=== PATIENT | female | born 1995 | race Caucasian/White ===

== ENCOUNTER 2024-11-23 18:38 | Inpatient (IN) | payer BC, SELFPAY ==
[2024-11-23 18:59] VITALS: BP 136/100; PULSE 89
[2024-11-23 19:00] VITALS: PULSE 87; O2SAT 97
[2024-11-23 19:04] VITALS: BP 137/84; PULSE 82
[2024-11-23 20:11] VITALS: BMI 29.6
[2024-11-23] MEDS: DINOPROSTONE 10 MG VAGINAL INSERT VAGINAL (20:33)
[2024-11-23 22:51] VITALS: BP 127/77; PULSE 73; TEMP 36.6
[2024-11-24] VITALS (17 sets, daily range): BP systolic 115–141; BP diastolic 63–89; PULSE 75–234; RESP 14–16; TEMP 36.5–36.9; O2SAT 81–98
--- NOTE | 2024-11-24 08:01 | PM.OBHPLI ---
OB - H&P: HPI Labor/Induction History of Present Illness Time Seen by Provider: 08:01 Date Seen: 11/24/24 Chief Complaint: The patient is a 29 year old 1 para 0 at 38+3 weeks gestation by early US, who presents for IOL for IUGR. Chief complaint: IUGR : 1 Para: 0 Indications for induction: other (IUGR) Narrative: Anamika Chiang is a 29 year old female at 38+3 weeks who presents for IOL for IUGR. Level 2 US showed EFW 8th, AC 10th, otherwise normal. Declined NIPT. Most recent growth at 35 weeks showed EFW 4th and AC 2nd. monitoring has been reassuring with BPP on 11/21 09/12 with JOSE DAVID 4.1 and S/D ratio 2.7. [facility] recommends IOL 38-39w. Patient presented last evening. Found to be fingertip on SVE. Mohamud every 1-3 minutes, not feeling contractions. Proceeded with cervidil for cervical ripening. This AM, patient states she got some rest. Started to feel cramping overnight. Slightly more intense this AM. History of Present Dating criteria: based on LMP care: good care Ultrasounds: normal 1st trimester US Abnormal ultrasound findings: IUGR on Level 2 US. complications comment: Growth restriction Medical complications: none Labs Blood type: O (+) positive Rubella: immune RPR/VDLR: nonreactive GBS status: negative HBsAG: negative Narrative: GC/chlam neg Hep C neg GCT 163, passed 3 hour Review of Systems Status of ROS: Reports: 10 or more systems reviewed and unremarkable except as noted in History and below Meds Home Medications and Allergies Home Medications ?Medication ?Instructions ?Recorded ?Confirmed ?Type clotrimazole-betamethasone 1 1 applic topical BID PRN itching 11/23/24 11/23/24 History %-0.05 % topical cream vits,calcium 91-iron 28 1 pkg PO DAILY 11/23/24 11/23/24 History mg-folic 975 mcg-dha 200 mg oral pack ( + DHA) Allergies Allergy/AdvReac Type Severity Reaction Status Date / Time No Known Drug Allergies Allergy Verified 11/23/24 20:18 OB - H&P: Exam Physical Exam: Vital signs: Temp Pulse BP Pulse Ox 97.9 F 103 H 127/76 97 11/23/24 22:51 11/24/24 07:23 11/24/24 07:23 11/23/24 19:00 Narrative: General appearance: Well-appearing adult female. Alert, oriented and appropriate. Sitting up in hospital bed. HEENT: EOMI, no conjunctival injection or discharge. MMM. Neck: Supple. CV: RRR, no rubs, murmurs or extra heart sounds. Pulm: CTAB, no wheezes, rales or rhonchi. Abdomen: Gravid MSK: Moving all extremities. Ext: Warm and well-perfused. No LE edema. Skin: No rashes appreciated over exposed skin. Neuro: Grossly normal strength and sensation. No focal deficits. Psych: Normal affect. Detailed Labor and Delivery Exam: Dilation (cm): 1 Effacement (%): 60 Cervix position: posterior (L lateral) Consistency: medium Contraction frequency (min): 2 Fetus (Single): Station: -1 Amniotic Membrane Status: intact Heart Rate Baseline: 150 Monitor Accelerations: Present Monitor Decelerations: Variable (multiple decelerations 7-7:30, possibly some lates, but contractions were not capturing well. Now resolved with repositioning) Tennis Director Variability: Moderate (6-25) OB - Problem Based A/P Additional Plan (1) with 38 completed weeks gestation: Problem details: IOL for IUGR. Cervidil. GBS negative. Status: Acute Plan: - Cervidil due to be removed 8:40. Currently mohamud regularly, tentatively transition to pitocin - GBS negative - monitoring currently category I - IV to be placed this AM - Encouraged ambulation and labor warm up - Anticipate vaginal delivery (2) IUGR (intrauterine growth restriction): Problem details: EFW 4th percentile, AC 2nd percentile at 35 weeks. Declined NIPT. Status: Acute Plan: - Peds will be needed for delivery
[2024-11-24] MEDS: LACTATED RINGERS 1000 ML 1,000 ML 1200 ML IV (08:10)
[2024-11-24 08:39] LABS: Hematocrit* 36.4 % (33.0-51.0); Hemoglobin* 12.5 gm/dL (12.0-16.0); Immature Granulocytes Pct Auto 0.4 %; Mean Corpuscular HGB Conc 34 gm/dL (32-36); Mean Corpuscular Hemoglobin 31 pg (26-34); Mean Corpuscular Volume 90 fL (80-100); RDW Coefficient of Variation % 12.6 % (11.5-15.5); Red Blood Count* 4.06 m/uL (4.00-5.20); White Blood Count* 12.88 K/uL (4.50-11.00)
[2024-11-24 08:43] LABS: Immature Granulocytes Abs Auto 0.10 K/uL (0.00-0.30); Lymphocytes Absolute Auto 1.90 K/uL (0.90-2.90); Slide Review Reflex No
--- NOTE | 2024-11-24 12:35 | P.OBPN_ITS ---
Subjective Time Seen by Provider: 12:35 Date Seen: 11/24/24 Narrative: Cervidil removed 08:50. RN assisting with labor warm up. Continues to feel mild to moderate cramping. Not breathing through contractions. Cervical exam is 1.5 cm at the external os to the base of the cervix, but the in ternal os remains closed. Attemped cook catether, but could not get through the internal cervical os, and procedure was terminated. Objective Vital Signs: Last Vital Signs Temp 97.7 F 11/24/24 11:46 Pulse 85 11/24/24 11:46 BP 131/88 11/24/24 11:46 Pulse Ox 98 11/24/24 11:47 Pelvic Exam Dilation (cm): 0 Effacement (%): 60 Station: -1 Contractions Contraction Frequency: 2-3 Assessment Assessment: induction ongoing Station: -1 Status: Category l Heart Rate Baseline: 135 Account Resolution Specialist Variability: Moderate (6-25) Monitor Accelerations: Present Monitor Decelerations: Variable (multiple decelerations 7-7:30, possibly some lates, but contractions were not capturing well. Now resolved with repositioning) Plan Plan: - Hernandez score remains <8. Will proceed with additional cervical ripening with oral cytotec per protocol. Contractions have spaced slightly since removal of cervidil, patient is only feeling mild cramping. Monitor closely for tachysystole - monitoring category I - Epidural upon request - Anticipate vaginal delviery
--- NOTE | 2024-11-24 17:23 | P.OBPN_ITS ---
Subjective Time Seen by Provider: 17:23 Date Seen: 11/24/24 Narrative: Patient now s/p cervidil overnight, 2 doses of oral cytotec. Working through positions throughout the day with RN. Feeling about this same as this AM. Contractions are mild, crampy, every 1.5 - 5 mins. FHT have been category I with rare variables. Objective Vital Signs: Last Vital Signs Temp 97.7 F 11/24/24 11:46 Pulse 80 11/24/24 15:37 BP 138/76 11/24/24 15:37 Pulse Ox 81 L 11/24/24 15:38 Pelvic Exam Dilation (cm): 1 Effacement (%): 60 Station: -2 Comments: External os 2, internal os 1. Assessment Station: -1 Status: Category l Heart Rate Baseline: 145 Longterm Variability: Moderate (6-25) Monitor Accelerations: Present Monitor Decelerations: None (multiple decelerations 7-7:30, possibly some lates, but contractions were not capturing well. Now resolved with repositioning) Plan Plan: - AROM performed for clear fluid. Monitor x 2 hours per protocol - status reassuring - Epidural upon request - Anticipate vaginal delivery
[2024-11-25] VITALS (58 sets, daily range): BP systolic 92–144; BP diastolic 50–85; PULSE 73–169; RESP 14–20; TEMP 36.3–37.6; O2SAT 91–100
[2024-11-25] MEDS: OXYTOCIN 30 unit/500 ML in NS 30 UNIT/500 ML BAG IVPB (07:09)
--- NOTE | 2024-11-25 08:09 | P.OBPN_ITS ---
Subjective Time Seen by Provider: 08:09 Date Seen: 11/25/24 Narrative: Completed 6 doses of cytotec overnight (2 doses yesterday afternoon > AROM at 1716 > 4 additional doses overnight). Interval of 4 hours following last dose of cytotec prior to staring pitocin. Received morphine and vistaril and got a little rest, fatigued this AM. Contractions fairly infrequent overnight, but more regular and intense this AM. FHT have remained reassuring. Now breathing through contractions. Requesting epidural. Objective Vital Signs: Last Vital Signs Temp 97.6 F 11/25/24 07:15 Pulse 86 11/25/24 07:28 Resp 18 11/25/24 07:15 BP 115/67 11/25/24 07:28 Pulse Ox 98 11/24/24 18:27 Pelvic Exam Dilation (cm): 2 Effacement (%): 75 Station: -1 Comments: 399, RN exam Contractions Monitor mode: External Contraction Frequency: 3-3.5 mins Pitocin Rate (mU/min): 1 Assessment Assessment: early labor Station: -1 Amniotic Membrane Status: AROM Status: Category l Heart Rate Baseline: 130 Repulping Supervisor Variability: Moderate (6-25) Monitor Accelerations: Present Monitor Decelerations: None (multiple decelerations 7-7:30, possibly some lates, but contractions were not capturing well. Now resolved with repositioning) Tracing Comments: Contractions have been difficult to trace. Plan Plan: - Continue to titrate pitocin for labor induction - Consider internal monitoring pending labor progress - status reassuring - Patient has requested epidural, anesthesia present in the room - GBS negative - AROM x 15 hours, monitor closely for signs of infection - Anticipate vaginal delivery
[2024-11-25] MEDS: LACTATED RINGERS 1000 ML 1,000 ML 999 ML IV (08:15)
[2024-11-25] MEDS: LIDOCAINE 2% (PF) 5 ML VIAL EPIDURAL (08:32)
[2024-11-25] MEDS: ROPIVACAINE 0.2% 100 ml 100 ML 12 MG EPIDURAL (08:34)
--- NOTE | 2024-11-25 08:41 | PM.ANBPRC ---
PFSH PFSH Social History What is your current living situation?: I presently have a place to live Problems where you live: no known problems In the past 12 months, utilities in danger of being shut off: no In past 12 months, lack of transportation kept you from medical appts, meetings, work, or getting things needed for daily living: no In the past 12 mos, have been you worried that your food would run out before you had money to buy more?: never true In the past 12 mos, the food you bought just didn't last and you didn't have money to buy more?: never true Smoking Status: Never smoker How often does anyone, including family, friends and others, physically hurt you: never How often does anyone, including family, friends and others, insult or talk down to you: never How often does anyone, including family, friends and others, threaten you with harm: never How often does anyone, including family, friends and others, scream or curse at you: never Meds Home Medications and Allergies Home Medications ?Medication ?Instructions ?Recorded ?Confirmed ?Type clotrimazole-betamethasone 1 1 applic topical BID PRN itching 11/23/24 11/23/24 History %-0.05 % topical cream vits,calcium 91-iron 28 1 pkg PO DAILY 11/23/24 11/23/24 History mg-folic 975 mcg-dha 200 mg oral pack ( + DHA) Allergies Allergy/AdvReac Type Severity Reaction Status Date / Time No Known Drug Allergies Allergy Verified 11/23/24 20:18 Results Labs Labs: Laboratory Results - last 24 hr 11/23/24 08:30 WBC 12.88 H RBC 4.06 Hgb 12.5 Hct 36.4 MCV 90 MCH 31 MCHC 34 RDW Coeff of Stewart 12.6 Plt Count 173 Neut % (Auto) 75.7 H Lymph % (Auto) 14.[address] [place] % (Auto) 8.5 Eos % (Auto) 0.3 Baso % (Auto) 0.2 Neut # (Auto) 9.80 H Lymph # (Auto) 1.90 [place] # (Auto) 1.10 H Eos # (Auto) 0.00 Baso # (Auto) 0.00 Abs Immat Gran (auto) 0.10 Imm/Tot Granulo (auto) 0.4 Vital Signs Vital Signs: Last Vital Signs Temp 97.6 F 11/25/24 07:15 Pulse 88 11/25/24 08:35 Resp 18 11/25/24 07:15 BP 124/66 11/25/24 08:37 Pulse Ox 100 11/25/24 08:34 Weight: 80.739 kg Height: 165.1 cm Anesthesia Procedures Epidural Insertion Patient Location: OB Start Time: 08:00 Stop Time: 08:41 Start Date: 11/25/24 Stop Date: 11/25/24 Reason for Block: procedure for pain Patient Position: sitting Performed By: Chin Wise Preanesthetic Checklist: IV checked, risks and benefits discussed, surgical consent, monitors and equipment checked, pre-op evaluation, timeout performed and anesthesia consent Prep: chlorhexidine gluconate Monitoring: blood pressure monitoring, continuous pulse oximetry and heart rate Approach: midline Vertebral Space: lumbar (1-5) Needle Type: Tuohy needle Injection Technique: continuous catheter Needle gauge: 17 Needle Length (cm): 10 cm Needle Insertion Depth (cm): 7 Catheter Gauge: 19 Catheter Type: multi-orifice Catheter at skin depth (cm): 13 Test Dose Result: negative and lidocaine 1.5% with epinephrine 1 to 200,000
[2024-11-25] MEDS: PHENYLEPHRINE 100 MCG/ML SYRINGE IVP (08:43)
[2024-11-25] MEDS: miSOPROStoL 800 MCG/4 TABLET PR (11:32)
--- NOTE | 2024-11-25 11:51 | P.OBCN_ITS ---
OB - CN: HPI Date of Consult Time Seen by Provider: 11:45 Date Seen: 11/25/24 Consult date: 11/25/24 Requesting Physician: Shy Castillo MD Primary Care Provider: Shy Castillo MD Consult Narrative Narrative: The patient is a 29 year old at 38 weeks gestation that was admitted to the [facility] on 11/23/24 for IOL due to growth restrictions. I was asked to assess a vaginal laceration. Perineum inspected and a long deep 2nd degree laceration was noted. The external anal was noted to be completely intact with the tear just being around it. Rectal exam performed to confirm degree of tear. No deeper occult tear noted. I placed 2 figure of 8s at the vaginal introitus to close the broad space and to provide for a more substantial perineal body with 2-0 vicryl. The remainder of the tear was repaired as a typical 2nd degree laceration that will be repaired by Dr. Castillo. A rectal exam was performed at the end of repair and was without e/o suture through rectum or sphincter injury. Following the repair, strong bowel regimen instructions reviewed. Lap and needle count confirmed at the end of my portion of the repair. I disposed of the suture needle in the sharp bin. Care turned over to Dr. Castillo. History of Present complications comment: Growth restriction History History 1 Elective abortions Para 0 Spontaneous abortions Hx # Term Pregnancies Ectopic pregnancies Hx # Pregnancies Multiple births Number of Living Children 0 Labs Blood type: O (+) positive Rubella: immune RPR/VDLR: nonreactive GBS status: negative HBsAG: negative OB Labs: Lab Assessment Start: 11/23/24 18:47 Freq: ONCE Status: Complete Protocol: PC.OBGBS Activity Type Activity Date Activity User E-sign Co-sign Detail Recorded Client Recorded Date Recorded By Document 11/23/24 21:24 POT No Response 11/23/24 21:25 POT 11/23/24 21:24 Lab Assessment GBS Status negative Is Patient Allergic to Penicillin? No Are Labs Available Yes Maternal Blood Type O Maternal RH Factor Positive Evaluate Maternal Rubella Immune Status Immune Hepatitis B Surface Antigen Negative Maternal HIV Status Negative Maternal Syphillis (RPR) Status Negative PFSH PFSH Social History What is your current living situation?: I presently have a place to live Problems where you live: no known problems In the past 12 months, utilities in danger of being shut off: no In past 12 months, lack of transportation kept you from medical appts, meetings, work, or getting things needed for daily living: no In the past 12 mos, have been you worried that your food would run out before you had money to buy more?: never true In the past 12 mos, the food you bought just didn't last and you didn't have money to buy more?: never true Smoking Status: Never smoker How often does anyone, including family, friends and others, physically hurt you : never How often does anyone, including family, friends and others, insult or talk down to you: never How often does anyone, including family, friends and others, threaten you with harm: never How often does anyone, including family, friends and others, scream or curse at you: never Meds Home Medications and Allergies Home Medications ?Medication ?Instructions ?Recorded ?Confirmed ?Type clotrimazole-betamethasone 1 1 applic topical BID PRN itching 11/23/24 11/23/24 History %-0.05 % topical cream vits,calcium 91-iron 28 1 pkg PO DAILY 11/23/24 History mg-folic 975 mcg-dha 200 mg oral pack ( + DHA) Allergies Allergy/AdvReac Type Severity Reaction Status Date / Time No Known Drug Allergies Allergy Verified 11/23/24 20:18 OB - H&P: Exam Physical Exam: Vital signs: Temp Pulse Resp BP Pulse Ox 98.7 F 111 H 20 135/62 97 11/25/24 11:00 11/25/24 11:29 11/25/24 11:00 11/25/24 11:29 11/25/24 09:34 OB - CN: A/P Assessment and Plan (1) with 38 completed weeks gestation: Problem details: IOL for IUGR. Cervidil. GBS negative. Status: Acute (2) IUGR (intrauterine growth restriction): Problem details: EFW 4th percentile, AC 2nd percentile at 35 weeks. Declined NIPT. Status: Acute
--- NOTE | 2024-11-25 12:33 | W.PM.OBVAGDE ---
OB Procedure Vag Delivery Mother Details Mother Details: The patient is a 29 year-old, 1, Para 0, admitted on 11/23/24 at 38+1 Days gestation for IOL for IUGR. She was mohamud every 1-3 minutes on admission, asymptomatic. Cervix was fingertip, -2. Cervidil was placed for cervical ripening. Cervidil removed after 12 hours. Cervix largely unchanged. Cook catheter placement was unsuccessful. Transitioned to oral cytotec per protocol. Received 2 doses. MD cervical check was /, head well applied, and AROM performed at 1716 on 11/24 for labor augmentation. Patient received additional 4 doses of oral cytotec. Began to become more uncomfortable with more regular uterine contractions around 0200 on 11/25. Requested epidural, which was placed 0845. Prolonged deceleration [id number] with isaac to 90, resolved with position change. FHT otherwise remained category I during inductiona and in the first stage. Found to be 9.5 cm following epidural. Complete 1010. Began pushing 1013. Pushed with good effort. FHT category II in the second stage, brief decelerations with pushing and rapid correction. Vigorous male delivered over an intact perineum at 1124 in the OA position. A nuchal cord was reduced. was placed on the maternal chest. APGARs were 8 and 9. Complete, 3V placenta delivered spontaneously at 1128. Patient received IV pitocin and rectal cyctotec. QBL 908. Dr. Gore was called to assess perineal laceration. Her assessment was a deep second degree. She place several deep sutures. Remainder of the repair was completed by Dr. Castillo. Mom and infant are resting comfortably. : 1 Para: 0 Weeks Gestation: 38.3 Admission Date: 11/23/24 Additional Details Amniotic Membrane Status: AROM Amniotic Membrane Rupture Date: 11/24/24 Amniotic Membrane Rupture Time: 17:16 Amniotic Membrane Fluid Description: Clear Analgesia/Anesthesia Type: Epidural Waterbirth: No Pitcoin: Yes Intrapartal Events: Labor Augmentation and Labor Induction Induction Method: Cervidil, per misoprostol protocol, per pitocin protocol and AROM Delivery augmentation: pitocin Labor Onset: 02:00 Complete: 10:10 Pushin:13 Heart: heart tones during second stage were category II. Delivery Details Delivery Date: 11/25/24 Delivery Time: 11:24 Route of delivery: Gender: Male Infant Viability: Alive; Heart Rate Present Position at Delivery: OA Delivery Details: Delivered via spontaneous vaginal delivery. Infant was placed on maternal abdomen.? Cord was clamped and cut after a 30-60 second delay. Nose and mouth were bulb suctioned.? weight pending. 1 Minute Interval Total Score: 8 5 Minute Interval Total Score: 9 Additional Details Shoulder Dystocia: No Placenta Delivery Time: 11:28 Placental Delivery Description: Spontaneous Delivery repair: Vicryl Procedure Done: Global Blood Loss: 908 Laceration: Vaginal - 2nd Degree Episiotomy Description: None Blood Loss Measurement Type: QBL Bakri Used: No Sponge/Need Count Correct: Yes Cord Vessel Description: 3 Vessels Event Summary Status: Mother and were stable after delivery. Disposition: floor
[2024-11-25] MEDS: DOCUSATE SODIUM 100 MG CAPSULE PO (17:03)
[2024-11-25] MEDS: IBUPROFEN 600 MG TABLET PO (17:03)
[2024-11-25] MEDS: ACETAMINOPHEN 500 MG TABLET 1000 MG PO (19:45)
[2024-11-25] MEDS: LACTATED RINGERS 1000 ML 1,000 ML IV (20:11)
[2024-11-25 20:28] LABS: Hematocrit* 28.9 % (33.0-51.0); Hemoglobin* 10.1 gm/dL (12.0-16.0); Immature Granulocytes Pct Auto 0.5 %; Mean Corpuscular HGB Conc 35 gm/dL (32-36); Mean Corpuscular Hemoglobin 32 pg (26-34); Mean Corpuscular Volume 90 fL (80-100); RDW Coefficient of Variation % 12.8 % (11.5-15.5); Red Blood Count* 3.21 m/uL (4.00-5.20); White Blood Count* 17.43 K/uL (4.50-11.00)
[2024-11-25 20:34] LABS: Immature Granulocytes Abs Auto 0.10 K/uL (0.00-0.30); Lymphocytes Absolute Auto 2.20 K/uL (0.90-2.90); Slide Review Reflex No
[2024-11-25 21:02] LABS: Alanine Aminotransferase* 20 U/L (4-35); Aspartate Amino Transferase* 44 U/L (12-35); Creatinine* 0.8 mg/dL (0.5-1.5); Est. Creatinine Clearance* 91.68; Estimated Glomerular Filt Rate 101 ml/min
--- NOTE | 2024-11-25 22:05 | PM.OBPNVD1 ---
OB - PN:Subj Subjective Time Seen by Provider: 22:06 Date Seen: 11/25/24 Patient comments OB post-: perineal pain and flatus present [place] infant status: and doing well Narrative: Patient is experiencing feeling of need to have BM. Is having pain in perineum, has a feeling of discomfort but not pain in abdomen. RN calls for assessment due to abdominal distension, mild tachycardia. Patient has had 2 BM in the last 2 days. She feels this is regular for her. She feels she is voiding ok. OB - PN: Obj Exam Physical Exam: Vital signs: Temp Pulse Resp BP Pulse Ox O2 Del Method 97.8 F 94 18 111/79 97 Room Air 11/25/24 21:25 11/25/24 21:25 11/25/24 21:11/25/24 21:25 11/25/24 21:25 11/25/24 21:25 Constitutional: Constitutional: no acute distress Routine HEENT Exam: Head: Present normal inspection Routine Neck Exam: Neck: Present full ROM Routine Respiratory Exam: Respiratory: Present CTA bilaterally, crackles and rales Routine Cardiovascular Exam: Cardiovascular: Present RRR, S1 and S2; Absent murmur Routine Abdominal Exam: Abdominal: Present distended and tenderness (minimally tender diffusely, no rebound/guarding) Fundus: Present firm (at umbilicus) Detailed Abdominal Exam: Bowel sounds: hyperactive Routine Extremities Exam: Extremities: Present pedal edema (1+ bilaterally); Absent calf tenderness Routine Neurological Exam: Neurological: Present alert and oriented X3 Routine Psychiatric Exam: Psychiatric: Present normal affect OB - PN: Obj Data Labs Labs: Laboratory Results - last 24 hr 11/25/24 20:22 WBC 17.43 H RBC 3.21 L Hgb 10.1 L Hct 28.9 L MCV 90 MCH 32 MCHC 35 RDW Coeff of Stewart 12.8 Plt Count 164 Neut % (Auto) 77.1 H Lymph % (Auto) 12.5 L [place] % (Auto) 9.6 Eos % (Auto) 0.1 Baso % (Auto) 0.2 Neut # (Auto) 13.40 H Lymph # (Auto) 2.20 [place] # (Auto) 1.70 H Eos # (Auto) 0.00 Baso # (Auto) 0.00 Abs Immat Gran (auto) 0.10 Imm/Tot Granulo (auto) 0.5 Creatinine 0.8 Estimated Creat Clear 91.68 Estimated GFR 101 AST 44 H ALT 20 OB - PN: A/P Delivery Assessment and Plan (1) with 38 completed weeks gestation: Problem details: IOL for IUGR. Cervidil, cytotec, AROM then pitocin. GBS negative. Status: Acute (2) Urinary retention: Problem details: RN noted abdominal distention at shift change evening 11/25. Had mild tachycardia. Given pain medications, fluid bolus. Bladder scan for >650 ccs. Discussed with patient options for coon, elects to have coon placed overnight. Coon was placed, 1300 immediately drained from bladder. Abdomen is no longer distended, fundus is 1 below umbilicus, firm, nontender. Status: Acute (3) IUGR (intrauterine growth restriction): Problem details: EFW 4th percentile, AC 2nd percentile at 35 weeks. Declined NIPT. SGA by 5 grams. Status: Acute (4) Abdominal distention: Problem details: improved after placement of coon catheter. Will monitor. Status: Acute (5) (normal spontaneous vaginal delivery): Status: Acute (6) Second degree laceration of perineum, delivered, current hospitalization: Problem details: Repaired with Dr. Gore And Dr. Castillo. Status: Acute Assessment and Plan: - continue bowel regimen (7) hemorrhage: Problem details: 908 QBL, received cytotec and pitocin. Hemoglobin tonight 10.1. Status: Acute Plan - coon placed, will keep in place x 12 hours and do bladder trial tomorrow - ins/outs monitored - monitor for distension, bleeding, new pain. - Recheck labs in am. (CBC, AST, ALT, Creat). Plan day: 0 Plan: routine care
[2024-11-26 01:05] VITALS: BP 135/83; PULSE 101; RESP 16; TEMP 36.5; O2SAT 97
[2024-11-26] MEDS: IBUPROFEN 600 MG TABLET PO ×3 (01:14→18:05)
[2024-11-26 03:32] VITALS: BP 110/68; PULSE 78; RESP 20; TEMP 37.1; O2SAT 98
[2024-11-26 05:28] LABS: Hematocrit* 25.8 % (33.0-51.0); Hemoglobin* 8.7 gm/dL (12.0-16.0); Immature Granulocytes Pct Auto 0.7 %; Lymphocytes Absolute Auto 3.60 K/uL (0.90-2.90); Mean Corpuscular HGB Conc 34 gm/dL (32-36); Mean Corpuscular Hemoglobin 31 pg (26-34); Mean Corpuscular Volume 92 fL (80-100); RDW Coefficient of Variation % 13.0 % (11.5-15.5); Red Blood Count* 2.82 m/uL (4.00-5.20); White Blood Count* 13.59 K/uL (4.50-11.00)
[2024-11-26 05:36] LABS: Immature Granulocytes Abs Auto 0.10 K/uL (0.00-0.30); Slide Review Reflex No
[2024-11-26 05:42] LABS: Chloride* 104 mmol/L (96-114); Sodium* 132 mmol/L (135-149)
[2024-11-26 05:43] LABS: Potassium* 4.3 mmol/L (3.6-5.1)
[2024-11-26 05:45] LABS: Alanine Aminotransferase* 15 U/L (4-35); Anion Gap 2 mEq/L (7-15); Aspartate Amino Transferase* 36 U/L (12-35); Blood Urea Nitrogen* 10 mg/dL (5-24); Carbon Dioxide* 26 mmol/L (20-32); Creatinine* 0.7 mg/dL (0.5-1.5); Est. Creatinine Clearance* 104.78; Estimated Glomerular Filt Rate 119 ml/min
[2024-11-26 05:46] LABS: Calcium* 8.0 mg/dL (8.4-10.6); Glucose* 94 mg/dL (60-115)
--- NOTE | 2024-11-26 07:08 | PM.OBPNVD1 ---
OB - PN:Subj Subjective Date Seen: 11/26/24 Narrative: Patient seen today on PP day 1. Endorses significant perineal pain and discomfort. Minimal rest overnight. Had urinary retention overnight. Coon in place for 12 hours, plan for removal and void trial today. PPH. Hb 8.7 today. Pain under control with ibuprofen. Lochia decreasing. Ambulating. Tolerating diet. is not going well, suplementing. . OB - PN: Obj Exam Physical Exam: Vital signs: Temp Pulse Resp BP Pulse Ox O2 Del Method 98.7 F 78 20 110/68 98 Room Air 11/26/24 03:32 11/26/24 03:32 11/26/24 03:32 11/26/24 03:32 11/26/24 03:32 11/26/24 03:32 Narrative: Gen: NAD CV: RRR, normal S1,S2, no murmurs Resp: normal rate and effort, clear to auscultation Abd: Soft, uterus firm and nontender at 1in belowumbilicus Ext: Warm, dry, 2+ pedal pulses, no edema b/l. Calves non-tender to palpation. Mood: Appropriate OB - PN: Obj Data Labs Labs: Laboratory Results - last 24 hr 11/23/24 11/25/24 11/26/24 08:30 20:22 05:20 WBC 17.43 H 13.59 H RBC 3.21 L 2.82 L Hgb 10.1 L 8.7 L Hct 28.9 L 25.8 L MCV 90 92 MCH 32 31 MCHC 35 34 RDW Coeff of Stewart 12.8 13.0 Plt Count 164 131 L Neut % (Auto) 77.1 H 62.9 Lymph % (Auto) 12.5 L 26.5 [place] % (Auto) 9.6 9.4 Eos % (Auto) 0.1 0.4 Baso % (Auto) 0.2 0.1 Neut # (Auto) 13.40 H 8.50 H Lymph # (Auto) 2.20 3.60 H [place] # (Auto) 1.70 H 1.30 H Eos # (Auto) 0.00 0.10 Baso # (Auto) 0.00 0.00 Abs Immat Gran (auto) 0.10 0.10 Imm/Tot Granulo (auto) 0.5 0.7 Sodium 132 L Potassium 4.3 Chloride 104 Carbon Dioxide 26 Anion Gap 2 L BUN 10 Creatinine 0.8 0.7 Estimated Creat Clear 91.68 104.78 Estimated GFR 101 119 Glucose 94 Calcium 8.0 L AST 44 H 36 H ALT 20 15 RPR Screen Non Reactive OB - PN: A/P Delivery Assessment and Plan (1) with 38 completed weeks gestation: Problem details: IOL for IUGR. Cervidil, cytotec, AROM then pitocin. GBS negative. Status: Acute (2) Urinary retention: Problem details: RN noted abdominal distention at shift change evening 11/25. Had mild tachycardia. Given pain medications, fluid bolus. Bladder scan for >650 ccs. Discussed with patient options for coon, elects to have coon placed overnight. Coon was placed, 1300mL immediately drained from bladder. Abdomen is no longer distended, fundus is 1 below umbilicus, firm, nontender. Status: Acute (3) IUGR (intrauterine growth restriction): Problem details: EFW 4th percentile, AC 2nd percentile at 35 weeks. Declined NIPT. SGA by 5 grams. Status: Acute (4) Abdominal distention: Problem details: improved after placement of coon catheter. Will monitor. Status: Acute (5) (normal spontaneous vaginal delivery): Status: Acute (6) Second degree laceration of perineum, delivered, current hospitalization: Problem details: Repaired with Dr. Gore And Dr. Castillo. Significant pain. Schedule tylenol/ibuprofen, given dose of oxycodone. Status: Acute (7) hemorrhage: Problem details: 908 QBL, received cytotec and pitocin. Hemoglobin 8.7 on 11/26, started oral iron. Status: Acute (8) Anxiety: Problem details: Started on sertraline 25mg daily in consultation with Anna Status: Acute
[2024-11-26] MEDS: ACETAMINOPHEN 500 MG TABLET 1000 MG PO ×3 (08:52→21:04)
[2024-11-26 09:00] VITALS: BP 102/68; PULSE 83; RESP 16; TEMP 36.4; O2SAT 97
[2024-11-26] MEDS: DOCUSATE SODIUM 100 MG CAPSULE PO (10:10)
[2024-11-26] MEDS: BENZOCAINE/MENTHOL SPRAY 85 GM AEROSOL 1 APPLIC TOPICAL (10:24)
--- NOTE | 2024-11-26 10:47 | PM.EN ---
Chart Event Note Time Seen by Provider: :30 Date Seen: 11/26/24 Chart Event Note: S: I was asked to evaluate the patient regarding perineal pain following vaginal delivery. PPD #1 following with deep second degree perineal laceration. Urinary retention starting prior to delivery - large volume of urine with catheter following epidural - required catheter replacement overnight. She has been receiving tylenol and ibuprofen, but continues to c/o perineal pain. Expresses worry about multiple things including urinating without a catheter, fear of having a bowel movement, fatigue, wanting to shower. Tearful. Only minimal sleep since delivery. present and supportive. O: Gen: Well-appearing, sitting up in bed, tearful CV/PULM: appears well perfused, breathing comfortably on room air ABD: Soft, non-tender. Fundus palpated 2 cm below the umbilicus : Moderate edema of the vulva, labia minora, perineum. Repair appears intact. No evidence of hematoma. A/P: - Continue tylenol and ibuprofen, alternating, each schedule Q6H. Dose of oxycodone 5 mg now. Consider going forward PRN - Continue daily miralax, docusate BID PRN for bowel regimen - Extend catheter for 18H, then remove and trial of voiding - Discussed initiation of SSRI, sertraline. Reviewed appropriate use, expectations, adverse effects. Patient is agreeable. 25 mg daily x 7 days, then increase to 50 mg daily
[2024-11-26] MEDS: FERROUS SULFATE 325 MG TABLET PO (12:31)
[2024-11-26 12:39] VITALS: BP 127/84; PULSE 86; RESP 18; TEMP 36.4; O2SAT 98
[2024-11-26 15:25] VITALS: BP 105/70; PULSE 75; RESP 18; TEMP 36.4; O2SAT 98
[2024-11-26 20:00] VITALS: BP 135/88; PULSE 75; RESP 16; TEMP 36.7; O2SAT 98
[2024-11-27] MEDS: IBUPROFEN 600 MG TABLET PO ×4 (00:35→19:55)
[2024-11-27] MEDS: ACETAMINOPHEN 500 MG TABLET 1000 MG PO ×4 (03:07→22:07)
[2024-11-27 03:55] VITALS: BP 120/78; PULSE 97; RESP 16; TEMP 36.7; O2SAT 97
[2024-11-27 08:25] VITALS: BP 123/78; PULSE 87; RESP 16; TEMP 36.6; O2SAT 97
[2024-11-27] MEDS: SERTRALINE 50 MG TABLET 25 MG PO (09:06)
[2024-11-27] MEDS: DOCUSATE SODIUM 100 MG CAPSULE PO (09:06)
[2024-11-27 15:30] VITALS: BP 123/79; PULSE 88; RESP 16; TEMP 36.8; O2SAT 97
[2024-11-27 21:31] VITALS: BP 128/89; PULSE 97; RESP 16; TEMP 36.6; O2SAT 97
--- NOTE | 2024-11-27 22:43 | PM.OBDSVD1 ---
DS: Providers Provider Time Seen by Provider: 08:00 Date Seen: 11/27/24 Date of admission: 11/23/24 18:38 Primary care physician: Shy Castillo MD Admitting Clinician: Shy Castillo MD Attending Physician on discharge: Shy Castillo MD Date of Discharge: 11/27/24 DS: Diagnosis Discharge Diagnosis (1) with 38 completed weeks gestation: Status: Acute Problem details: IOL for IUGR. Cervidil, cytotec, AROM then pitocin. GBS negative. (2) IUGR (intrauterine growth restriction): Status: Acute Problem details: EFW 4th percentile, AC 2nd percentile at 35 weeks. Declined NIPT. SGA by 5 grams. (3) (normal spontaneous vaginal delivery): Status: Acute (4) Second degree laceration of perineum, delivered, current hospitalization: Status: Acute Problem details: Repaired with Dr. Gore And Dr. Castillo. Significant pain. Schedule tylenol/ibuprofen, given dose of oxycodone. (5) hemorrhage: Status: Acute Problem details: 908 QBL, received cytotec and pitocin. Hemoglobin 8.7 on 11/26, started oral iron. (6) Urinary retention: Status: Acute Problem details: RN noted abdominal distention at shift change evening 11/25. Had mild tachycardia. Given pain medications, fluid bolus. Bladder scan for >650 ccs. Discussed with patient options for iniguez, elects to have iniguez placed overnight. Iniguez was placed, 1300mL immediately drained from bladder. Abdomen is no longer distended, fundus is 1 below umbilicus, firm, nontender. Normal urination following iniguez removal prior to discharge. (7) Anxiety: Status: Acute Problem details: Started on sertraline 25mg daily in consultation with Anna Exam Narrative: Exam Narrative: General appearance: Well-appearing adult female. Alert, oriented and appropriate. Sitting up in hospital bed. HEENT: EOMI, no conjunctival injection or discharge. MMM. Neck: Supple. CV: RRR, no rubs, murmurs or extra heart sounds. Pulm: CTAB, no wheezes, rales or rhonchi. Abdomen: Soft, non-tender. Fundus palpated 2 cm below the umbilicus. MSK: Moving all extremities. Ext: Warm and well-perfused. Trace LE edema. Skin: No rashes appreciated over exposed skin. Neuro: Grossly normal strength and sensation. No focal deficits. Psych: Normal affect. Const: Vital Signs, click to edit/add: Vital Signs - 24 hr 11/27/24 03:55 11/27/24 08:25 11/27/24 15:30 Temperature 98.0 F 98 F 98.2 F Pulse Rate [Blood Pressure Cuff] 97 87 88 Respiratory Rate 16 16 16 Blood Pressure [Ri ght Arm] 120/78 123/78 123/79 Pulse Oximetry 97 97 97 Oxygen Delivery Me thod Room Air Room Air Room Air 11/27/24 21:31 Temperature 97.9 F Pulse Rate [Blood Pressure Cuff] 97 Respiratory Rate 16 Blood Pressure [Ri ght Arm] 128/89 Pulse Oximetry 97 Oxygen Delivery Me thod Room Air OB - DS: Summary Hospital Course Hospital Course: The patient is a 29 year old G 1 P 0 at 38+2 weeks gestation that was admitted to the Center on 11/23/24 for IOL for IUGR. Cervical ripening with cervidil followed by oral cytotec and AROM. Received epidural. She had an uncomplicated vaginal delivery. Deep second degree perineal laceration. She delivered a viable male . She is breast feeding. Urinary retention after delivery required iniguez replacement x 18 hours. Subsequently normal urination. Required one dose of oxycodone for perineal pain, thereafter did well with scheduled tylenol and ibuprofen. Started on sertraline for anxiety. Peripartum Data Infant delivery method: Vaginal Laceration description: Perineal - 2nd Degree Episiotomy description: None complications: other (urinary retention) Gender: Male Infant Discharge Plan: Home Status at Discharge Functional status at discharge: independent ambulation Overall status at discharge: patient is progressing back to baseline Time Spent with Patient Time attestation: Total time spent providing and/or coordinating discharge services: Time spent: Greater than 30 minutes Discharge Plan Discharge Disposition: Home, Self-Care Date of Admission: 11/23/24 18:38 Attending Provider on Discharge: Shy Castillo Primary Care Provider: Shy Castillo I Condition: Improved Anticipated Discharge Date/Time: 11/27/24 19:25 Discharge Medications: New acetaminophen 500 mg Tablet 1,000 mg PO Q6H Qty: 30 0RF docusate sodium 100 mg Capsule 100 mg PO BID PRN (Reason: Constipation) Qty: 30 0RF ferrous sulfate 325 mg (65 mg iron) Tablet 325 mg PO Q48H Qty: 30 0RF polyethylene glycol 3350 17 gram Powder In Packet 17 g PO DAILY Qty: 30 0RF ibuprofen 600 mg Tablet 600 mg PO Q6H Qty: 3 0RF sertraline 50 mg Tablet 25 mg PO DAILY Qty: 30 1RF Rx Instructions: Take 0.5 tablet daily for 6 days, then increase to 1 tablet daily Continued clotrimazole-betamethasone 1-0.05 % cream 1 applic topical BID PRN (Reason: itching) + DHA 28 mg iron- 975 mcg-200 mg combo pack 1 pkg PO DAILY Discharge Orders: Discharge Order (Routine); Ordered 11/27/24 Ordered By: Shy Castillo Consulting provider completed their portion of the discharge: Yes Patient Education: Vaginal Delivery (DC) Activity Level: Activity as Tolerated Discharge Diet: Regular Follow Up Appointments: Shy Castillo MD [Primary Care Provider, Obstetrics] Forms: [facility] Info Instructions Discharge Comments: Follow-up with Dr. Castillo at the [facility] for 6 week post- visit
== END 2024-11-27 23:15 | disposition home or self-care (01) | DRG 560 ==
PROVIDERS: Family Medicine; Admitting Provider Family Medicine; PCP Family Medicine; Visit Provider Family Medicine
DX: O36.5930 Maternal care for other known or suspected poor fetal growth, third trimester, not applicable or unspecified (principal); Z3A.38 38 weeks gestation of pregnancy; O70.1 Second degree perineal laceration during delivery; R33.9 Retention of urine, unspecified; R14.0 Abdominal distension (gaseous); O72.1 Other immediate postpartum hemorrhage; O99.345 Other mental disorders complicating the puerperium; F41.9 Anxiety disorder, unspecified; Z37.0 Single live birth
CPT/HCPCS: 01967; 36415; 51798; 59200; 80048; 82565; 84450; 84460; 85018; 85025; 86592; 88307; A9270; J2270; J2795; J7120

== ENCOUNTER 2024-12-05 16:05 | Outpatient (CLI) | payer BC, SELFPAY ==
--- NOTE | 2024-12-05 16:36 | W.PM.LAC.MC ---
Consult Note - Mom Date of Visit Date of visit: 12/05/24 Reason for consultation: Assistance Needed and Breast/Nipple Issue (some nipple pain with latching, babe sleepy at times) Visit Code: Visit Patient's Information Phone number: [phone] : 1 Para: 1 Allergies No Known Drug Allergies Allergy (Verified 11/23/24 20:18) Mother's Medical History: Medical History (Updated 12/05/24 @ 00:01 by Tarah Kerr) hemorrhage ?O72.1 - Other immediate hemorrhage (ICD-10) (normal spontaneous vaginal delivery) ?O80 - Encounter for full-term uncomplicated delivery (ICD-10) IUGR (intrauterine growth restriction) Work Plans: return to work Apr 2025 Delivery Information Delivery type: Vaginal Gestational Age: 38+3 Gestational Weight For Age: SGA Weight: 2.595 kg Discharge Weight: 2.464 kg Percentage weight loss: 5.1 Baby's Information Baby's Age at Visit: 10 days Baby's Provider or Clinic: [facility] Jaundice: No Past Experience Past Experience: No Current Frequency of Day Feedings: 2.5-3.5 hrs day and night Both Breasts: Yes Suck: strong Latch: sometimes painful and shallow Length of Time: 10-15 min ea side Goals: 1 year Pumping Pumping: Yes Quantity Pumped: 2 oz once a day after pee feeding Supplementing EBM Supplement: No Formula Supplement: No Baby Elimination Number of Wet Diapers a Day: ea feeding Number of BM a Day: 6+/day-yellow, seedy Breast/Nipple Condition Breast Information: Breasts are symmetrical with rounded lower quadrants, intramammary distance is less than 1.5 inches. No erythema. Nipples are supple, everted prior to feeding. Breast Shape: Round Engorgement: No Maternal Nipple Condition - Left: Common Nipple Maternal Nipple Condition - Right: Common Nipple Sore Nipples: Yes (slight, R>L) Interventions for Sore Nipples: Lansinoh/Nipple Cream Baby Assessment Skin: Normal Tongue/frenulum: Normal/elastic Palate: Average Lips: Relaxed and Symmetrical Jaw Alignment: Symmetrical Mucosa: Paul, moist Onsite Observation Pre-Feed weight: 2.728 kg Post-Feed weight: 2.778 kg Milk Transferred (mL): 50 Position: Cross cradle Attachment/latch-on achieved: Easily and With difficulty (on the right side more than the left; repositioned and then he latched well) Suck pattern: Suck burst and normal rest Swallow: Audible, consistent Behavior following feed: Alert, content Pre-Nursing Left Nipple: Within Normal Limits Pre-Nursing Right Nipple: Within Normal Limits Post-Nursing Left Nipple: Creased/Beveled (slight) Post-Nursing Right Nipple: Within Normal Limits (no creasing with position change) Assessments/Interventions Assessments/Interventions: Jg latched to mom's left breast, latched after 3 attempts for a deep latch and stayed nursing for 15 minutes. Transferred 32 ml of milk Jg then latched to mom's right breast, latched a bit more challenging for a deep latch but once he was on mom stated it was more comfortable than usual and nursed for another 6.5 minutes and pulled himself off Transferred 18 ml of milk. Total milk transferred 50 ml Jg needed gentle support to stay latched. Jg with excellent weight gain; beyond weight at 10 days of age and transferring milk well Education provided: Early feeding cues to maximize timing of latching, Asymmetric latch technique for wide/deep latch to increase milk, Transfer for baby and increase comfort for mom, Supply/demand nature of milk supply, Need for frequent stimulation/milk removal (discussed night feedings as it pertains to milk supply vs bottle feeding EBM through the night), Alternative feeding methods (SNS, cup, finger feeding, bottling) (discussed bottle options supportive of ), Pumping for milk management and Milk collection, storage Follow-Up Suggested follow up: Appointment as needed Time Spent Time spent with patient (min): 75 Meds Home Medications and Allergies Home Medications ?Medication ?Instructions ?Recorded ?Confirmed ?Type clotrimazole-betamethasone 1 1 applic topical BID PRN itching 11/23/24 11/23/24 History %-0.05 % topical cream vits,calcium 91-iron 28 1 pkg PO DAILY 11/23/24 11/23/24 History mg-folic 975 mcg-dha 200 mg oral pack ( + DHA) acetaminophen 500 mg tablet 1,000 mg (2 x 500 mg) PO Q6H #30 10/23/25 Rx tabs docusate sodium 100 mg capsule 100 mg PO BID PRN Constipation #30 11/27/24 Rx caps ferrous sulfate 325 mg (65 mg 325 mg PO Q48H #30 tabs 11/27/24 Rx iron) tablet ibuprofen 600 mg tablet 600 mg PO Q6H #3 tabs 11/27/24 Rx polyethylene glycol 3350 17 gram 17 g PO DAILY #30 ea 11/27/24 Rx oral powder packet sertraline 50 mg tablet 25 mg (1/2 x 50 mg) PO DAILY #30 11/27/24 Rx tabs Allergies Allergy/AdvReac Type Severity Reaction Status Date / Time No Known Drug Allergies Allergy Verified 11/23/24 20:18
== END 2024-12-05 16:06 | disposition home or self-care (01) ==
LOC: OB LAC 16:05
PROVIDERS: PCP Family Medicine; Visit Provider Family Medicine
DX: Z39.1 Encounter for care and examination of lactating mother (principal)
CPT/HCPCS: G0463

== ENCOUNTER 2024-12-07 16:53 | Emergency (ER) | payer BC, SELFPAY ==
--- OUTSIDE RECORDS SUMMARY | 2024-12-07 16:55 | XMS_ITS | Clinical Summary ---
Author Organization [facility] Address [address] [place] [address] Care Team Providers Care Manager Education Name Role Phone Zuleyma Sanchez MD Primary Care Provid er Source Comments You are receiving this document as you are listed as the primary care provider,follow-up provider, or the patient has been referred to you for consultation.This is in compliance with the Medicare and[facility] EHR Incentive Program,which states Providers who transition their patient to another setting of careor provider of care or refers their patient to another provider of care shouldprovide summary care record for each transition of care or referral. [employer] Allergies No known active allergies Medications drospirenone-eth inyl estradiol (KRISTA) 3-0.02 MG tablet Take 1 Tablet by mouth. 03/06/2019 Active Active Problems Problem Noted Date Diagnosed Date Adjustment disorder with depressed mood 12/23/19 10 Immunizations Immunization Administration Dates Next Due 4vHPV (Gardasil) 02/15/2012,09/27/2011, 2 DTP 07/20/1998, 5,1993,1993,1993 DTaP 07/20/1998, 9,08/16/1994,1993,1993,1993 DTaP/Hib 08/16/1994, 4,1993,1993 Flu Vac (3+ yrs) 12/15/2009 HepA Adult (19+ yrs) 06/26/2011 HepA Ped/Adol (1-18 yrs) 06/22/2010 HepA, Unspecified Formulation 06/26/2011, 011 HepB Adult (Engerix-B, 20+ y rs, 3 dose series) 03/16/1994,1993,1993 HepB Ped/Adol (0-18 yrs) 03/16/1994,1993,0 1993 Hib (HbOC) 08/16/1994, 4,1993,1993 Hib, Unspecified Formulation 08/16/1994, 1993,1993,1993 IPV (Polio) 07/20/1998, 4,1993,1993 MCV4 (Menactra) 06/26/2011 MMR 07/20/1998, 9,09/12/1994,1994 OPV, Trivalent (Orimune or tOPV) 07/20/1998,06/07 Polio, Unspecified Formulation 9,1993,1993,1993 TB Skin Test (PPD) 06/03/2013 Td 07/20/2005 Tdap 06/26/2011 Typhoid, Unspecified Formulation 06/22/2010 Varicella 06/26/2011,09/12/1994,09/12/1994 Family History Relation Name Status Comments Father Alive Mother Alive Brother Alive Maternal Grandfather Alive Maternal Grandmother Alive Paternal Grandfather Alive Paternal Grandmother Alive Sister Alive Social History Tobacco Use Types Packs/Day Years Used Date Smoking Tobacco: Never Smokeless Tobacco: Never Tobacco Cessation:Counseling Given: No Alcohol Use Standard Drinks/Week Comments Yes 2 (1 standard drink = 0.6 oz pur e alcohol) Comments No Sex and Gender Information Value Date Recorded Sex Assigned at Not on file Legal Sex Female 4:50 AM CDT Gender Identity Not on file Sexual Orientation Not on file Last Filed Vital Signs Vital Sign Reading Time Taken Comments Blood Pressure 131/76 04/09/2018 4:53 PM 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 Pulse 85 03/27/2019 1:23 PM 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 Temperature 36.6 C (97.8 F) 04/09/2018 4:53 PM 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 Respiratory Rate 16 04/09/2018 4:53 PM 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 Oxygen Saturation 98% 11/04/2017 2:27 PM CDT Inhaled Oxygen Concentration - - Weight 63.5 kg (140 lb) 04/09/2018 4:53 PM 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 Height 165.1 cm (5' 5) 04/09/2018 4:53 PM 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 Body Mass Index 23.3 04/09/2018 4:53 PM 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 Plan of Treatment Health Maintenance Due Date Last Done Comments Cervical Cancer Screening Due 1993 Hep C Screening (Preventive Services) 1993 HIV Screening (Preventive Services) 2009 Adult Preventive Visit 06/04/2015 06/03/2013 DTaP/Tdap/Td Vaccine (7 - Tdap) 06/25/2021 06/26/2011, 07/20/2005, 07/20/1998, Additional history exists COVID-19 Vaccine ( season) 2024 05/28/2020, 04/30/2020 Influenza Vaccine (#1) 2024 12/13/2019, 2009 Zoster/Shingles Vaccine (1 of 2) 05/07/2043 HepB Vaccine Completed 03/16/1994, 10/1994, 1993, Additional history exists Hib Vaccine Completed 08/16/1994, 08/05, 08/16/1994, Additional history exists IPV (Polio) Vaccine Completed 07/20/1998, 07/20/1998, 07/20/1998, Additional history exists HepA Vaccine Completed 06/26/2011, 06/06, 06/22/2010, Additional history exists MCV4 Vaccine Completed 06/26/2011 HPV Vaccine Completed 02/15/2012, 09/06, 06/26/2011 Meningococcal B Vaccine Aged Out No l onger eligible based on patient's age to complete this topic Pneumococcal Vaccine Aged Out No long er eligible based on patient's age to complete this topic Insurance [employer] [id number] F[employer]Y INSURED Care Teams Manager Education Relationship Specialty Start Date End Date Zuleyma Sanchez MD [address] [place] [id number] PCP - General Family Practice 04/05/18
--- OUTSIDE RECORDS SUMMARY | 2024-12-07 16:56 | XMS_ITS | Clinical Summary ---
Author Organization [facility] Address [address] [place] [id number] Care Team Providers Care Vault Clerk Name Role Phone Reva Castillo MD Primary Care Provider Allergies No known active allergies Medications vit 28/iron fum/folic (multivitamin folic acid 1 mg)Indications:M issed period Take 1 Tablet by mouth once daily. 5 Active triamcinolone 0.1 % creamIndications :Eczema, unspecified type Apply topically to affected area(s) three times daily. 80 g 5 Active clotrimazole-bet amethasone 1%-0.05% creamIndications :Vaginal itching Apply topically to affected area(s) two times daily. 45 g 1 5 Active Active Problems Problem Noted Date Diagnosed Date NST (non-stress test) reactive on surveill ance 10/10/2024 MPP, Supervision of high-risk 08/01/19 25 Overview (08/25/2024): Anamika Herrera : 1995 REFERRING PROVIDER/CLINIC LOCATION/FAX #: Vault Clerk Role and Specialty Contact Info Address Start End Comments Reva Castillo MD General (Family Practice) [address] [id number] 06/02/2022 - - Primary provider approves scheduling of recommended ultrasounds/testing: Yes MPP ULTRASOUND/TESTING PATIENT Support person name: ULTRASOUND TYPE: 08/28 growth REASON FOR VISIT: FGR NEXT VISIT ALERTS: Final JR by LMP LMP Date: Patient's last menstrual period was 03/01/2024 (exact date). JR: 12/06/24 Early US: Date: 04/25/24 GA: 7w4d JR: 12/08/24 PrePregnancy Weight: 155lb Height: 5'5 BMI: 25 PLANS & FUTURE APPOINTMENTS: ULTRASOUND/GROWTH PLAN: -Weekly BPP/NSTs starting at 28 weeks. -Weekly Umbilical artery Doppler/amniotic fluid determinations. - Through: - Growth: Next growth ultrasound in 4 weeks. 08/28 TESTING PLAN: - Testing: Through DELIVERY PLAN: - Scheduled delivery: - Preferred delivery location: PRIMARY DIAGNOSIS: 29 y.o. Estimated Date of Delivery: 12/06/24 : FGR MATERNAL: PREVIOUS ULTRASOUNDS: 08/01/24 21w6d EFW 380 grams, percentile: 8. AC 10. 07/25/24 EFW 333 grams which lies at the 13th%- HC 6th and cerebellulm <2 (PCP) ECHO: SPECIALISTS/CONSULTS: Include: Specialty MD Clinic Name Phone# [place] and ADDED TO PATIENT CARE TEAM GENETICS: Declined serum screening CARE COORDINATION: PERTINENT LABS: Labs reviewed? Yes Normal? Yes Blood type: O Rh Positive Antibody screen: Negative 08/18/24 GCT 163 - planning GTT PERTINENT MEDS: PROCEDURES: IF FGR <10% or EFW <2000 grams: Add FGRPCOM PLAN OF CARE: Original and updated POC 08/01 per -Return to primary provider for continued care. -Betamethasone per provider discretion. -Weekly BPP/NSTs starting at 28 weeks. -Weekly Umbilical artery Dopplers. -Weekly amniotic fluid determinations. -Next is scheduled in 2 weeks. -Repeat growth ultrasound in 4 weeks. -The patient was directed to schedule with MPP as discussed at their visit today. -Patient directed to schedule at the front end specialist on the way out, or to call MPP within 2 business days to schedule follow up. 04/29/2024 Overview (11/21/2024): Dr. Castillo will manage IOL specific problem list: 1.Suspected growth restriction - resolved - 20 week survey showed EFW 13th, HC 6th > Level 2 with MPP at 21 w showed EFW 8th percentile and AC 10th c/w mild IUGR > Growth US with MPP at 25w showed EFW 25th > Growth US at 29w EFW 10th, AC 9th > Growth US at 35w EFW 4th, AC 2nd - Declined NIPT - Weekly BPPs with [facility] and JOSE DAVID have been reassuring - [facility] recommends delivery at 38-39w, prefer closer to 38w d/t AC 2%ile; IOL scheduled for 11/23 at 1800, plan oral cytotec for cervical ripening - Peds needed for delivery Estimated Date of Delivery: 12/06/24 c/w 7wk dating US Patient's last menstrual period was 03/01/2024 (exact date). GBS: Vaginal/Rectal OB Strep B PCR Date Value Ref Range Status 11/14/2024 Negative Final 28wk labs: Passed 3 hour GLUCOSE, GESTATIONAL SCREEN (50G)-140 CUTOFF Date Value Ref Range Status 08/18/2024 163 (H) <140 mg/dL Final HEMOGLOBIN Date Value Ref Range Status 08/18/2024 12.3 11.7 - 15.5 g/dL Final TREPONEMA PALLIDUM Date Value Ref Range Status 08/18/2024 Non-Reactive Non-Reactive Final Last Tdap: 2022 Last Flu vaccine: 10/27/23 OB Labs: ABORH Date Value Ref Range Status 04/25/2024 O Rh Positive Final ANTIBODY SCREEN Date Value Ref Range Status 04/25/2024 Negative Negative Final TREPONEMA PALLIDUM Date Value Ref Range Status 04/25/2024 Non-Reactive Non-Reactive Final RUBELLA AB (IGG), IMMUNE STATUS Date Value Ref Range Status 04/25/2024 1.38 Index Final Comment: Index Interpretation ----- <0.90 Not consistent with immunity 0.90-0.99 Equivocal > or = 1.00 Consistent with immunity HEPATITIS B SURFACE ANTIGEN Date Value Ref Range Status 04/25/2024 NON-REACTIVE NON-REACTIVE Final HEPATITIS C ANTIBODY Date Value Ref Range Status 04/25/2024 NON-REACTIVE NON-REACTIVE Final HIV AG/AB, 4TH GEN Date Value Ref Range Status 04/25/2024 NON-REACTIVE NON-REACTIVE Final VARICELLA ZOSTER VIRUS ANTIBODY (IGG) Date Value Ref Range Status 04/25/2024 <1.00 (L) S/CO Final Comment: Signal to Cut-off S/CO Interpretation --------- <1.00 Negative - Antibody not detected > or = 1.00 Positive - Antibody detected HEMOGLOBIN Date Value Ref Range Status 04/25/2024 13.8 11.7 - 15.5 g/dL Final PLATELET COUNT Date Value Ref Range Status 04/25/2024 245 140 - 400 Thousand/uL Final CHLAMYDIA PROBE Date Value Ref Range Status 04/25/2024 Negative Final N GONORRHOEAE PROBE Date Value Ref Range Status 04/25/2024 Negative Final No Known Allergies OB History Para Term AB Living 1 0 0 0 0 0 SAB IAB Ectopic Multiple Live Births 0 0 0 0 0 # Outcome Date GA Lbr Eduardo/2nd Weight Sex Type Anes PTL Lv 1 Current Past Medical History: . Date No Significant Past Medical History Past Surgical History: . Laterality Date ACL RECONSTRUCTION Right 06/2015 WISDOM TEETH EXTRACTION Problems (from 04/16/24 to present) No problems associated with this episode. Michelle Ratliff RN ....04/29/2024 8:25 AM Pap smear for cervical cancer screening 03/12/19 24 Overview (03/12/2023): 02/2023 NIL/HPV negative. Plan: Pap/HPV due 02/2028. Adjustment disorder with depressed mood 12/23/19 10 Estimated Date of Delivery Comme nts Yes 12/06/2024 Based on last me nstrual period of 03/01/2024 (Exact Date) Resolved Problems Problem Noted Date Diagnosed Date Resolved Date Suspected problem with growth not found 08/29/19 25 11/03/2024 Encounters Date Type Department Care Team Description 11/26/2024 Orders Only [facility] Scanner 1 scan: (1-Ord) [place], RESULTS, 11/26/2024 11/26/2024 Lab Requisition [facility] [phone] Unknown, Doctor 11/25/2024 Orders Only [facility] Scanner 1 scan: (1-Ord) [facility], LAB RESULTS, 11/25/2024 11/25/2024 Orders Only [facility] Scanner 1 scan: (1-Ord) [facility], LAB RESULTS, 11/25/2024 11/25/2024 Orders Only [facility] Scanner 1 scan: (1-Ord) [facility], OB PROCEDURE VAG DELIVERY, 11/25/2024 11/23/2024 Orders Only [facility] Scanner 1 scan: (1-Ord) [facility] , RPR, 11/23/2024 11/23/2024 Orders Only [facility] Scanner 1 scan: (1-Ord) [facility], CBC W DIFF/PLATELETS, 11/23/2024 11/21/2024 8:15 AM CDT OB Encounter [facility] [address] [place] [address] Reva Castillo MD Care (37 weeks 6days) 11/21/2024 7:30 AM CDT Ancillary Procedure [facility] [address] [place] [address] 11/21/2024 Travel 11/14/2024 4:00 PM CDT Ancillary Procedure [facility] [address] [facility] [address] 11/14/2024 2:45 PM CDT OB Encounter [facility] [address] [facility] [place] [address] Reva Castillo MD Care (36 week 6days) 11/14/2024 Travel 11/07/2024 7:30 AM CDT Ancillary Procedure [facility] [address] [place] [address] 11/06/2024 Travel 10/31/2024 7:30 AM CDT Ancillary Procedure [facility] [address] [facility] [address] 10/31/2024 7:00 AM CDT OB Encounter [facility] [address] [facility] [address] Reva Castillo MD Care 10/31/2024 Travel 10/24/2024 4:00 PM CDT Ancillary Procedure [facility] [address] [facility] [address] 10/24/2024 Telephone [facility] [address] [facility] [place] [address] Reva Castillo MD Form 10/24/2024 Travel 10/17/2024 4:30 PM CDT Ancillary Procedure [facility] [address] [place] [id number] 10/17/2024 7:00 AM CDT OB Encounter [facility] [address] [facility] [address] Reva Castillo MD Care (32w6d) 10/17/2024 Travel 10/10/2024 3:15 PM CDT - 10/10/2024 4:10 PM CDT Hospital Encounter [address] [address] Hospitalist, [place] [facility] Jesica Farias MD, PhD Discharge Disposition: Home Self Care 10/10/2024 8:15 AM CDT Ancillary Procedure [facility] [address] [place] [id number] 10/10/2024 Telephone [facility] [address] [place] [address] Reva Castillo MD Appointment (Needs NST) 10/10/2024 Travel 10/03/2024 8:15 AM CDT OB Encounter [facility] [address] [facility] [address] Reva Castillo MD Care (30 wks 6d ) 10/03/2024 7:30 AM CDT Ancillary Procedure [facility] [address] [facility] [address] 10/02/2024 Travel 09/19/2024 9:55 AM CDT OB Encounter [facility] [address] [facility] [address] Reva Castillo MD Care (Patient states no concerns today.) 09/19/2024 9:00 AM CDT Ancillary Procedure [facility] [address] [facility] [address] 09/19/2024 Travel from Last 3 Months Immunizations Immunization Administration Dates Next Due DTP 07/20/1998, 5,1993,09/23,1993 DTP-HIB 08/16/1994, 4,1993,07/05 DTaP 07/20/1998, 5,1993,09/23,1993 DTaP-HIB (TriHIBIT) 08/16/1994, 4,1993,07/05 HIB HbOC (HibTITER) 08/16/1994, 4,1993,07/05 Hepatitis A (Adult) 06/26/2011 Hepatitis A (Peds) 06/22/2010 Hepatitis A (Peds),Unspecified 06/22/2010 Hepatitis A, Unspecified 06/26/2011,06/22/2010 Hepatitis B (Adult) 03/16/1994,1993,1993 Hepatitis B (Peds) 03/16/1994,1993, 994 Hib Conjugate, Unspecified 08/16/1994,,1993,07/05 Human Papilloma Virus Vaccine 02/15/2012, 012,06/26/2011 INFLUENZA, IIV3 PF (AGE >= 6 MO) 10/17/2024 Inactivated Polio Vaccine 07/20/1998,,1993,07/05 Influenza, CCIIV3 (Age >=6 M O) (Egg Free) 10/27/2023 Influenza, IIV3 (Age >=3 years) 12/15/2009 Influenza, IIV4 10/28/2021 Influenza,CCIIV4 PRESERV FREE 11/05/2022 Influenza,LAIV4 Live Intrana lila (Flumist) 12/13/2019 MMR 07/20/1998,09/12/1994 Meningococcal Vaccine (Menactra) 06/26/2011 Oral Polio Vaccine 07/20/1998,1993 Polio Virus, Unspecified 07/20/1998,11/06,1993,07/05 RSV, Bivalent Vaccine Recons tituted (Abrysvo 120MCG/0.5mL) 10/17/2024 Td (Age >=7 Years) 07/20/2005 Tdap 09/19/2024,02/23/2022,06/26/2011 Tuberculin (PPD) 06/03/2013 Typhoid Parenteral,Killed 06/22/2010 Typhoid, Unspecified 06/22/2010 Typhus, Historical 06/22/2010 Varicella Vaccine 06/26/2011,09/12/1994 Family History Medical History Relation Name Comments Cancer Father hodgkins Cancer Maternal Aunt Diabetes Maternal Aunt Diabetes Maternal Grandfather Hypertension Maternal Grandfather Cancer Maternal Grandmother blood c ancer Hypertension Maternal Grandmother Cancer Maternal Uncle Diabetes Maternal Uncle Hypertension Mother Coronary artery disease Paternal Aunt Cancer-prostate Paternal Grandfather Coronary artery disease Paternal Grandfather Dementia Paternal Grandmother Seizures Sister Relation Name Status Comments Brother Alive Father Alive Maternal Aunt Maternal Grandfather Maternal Grandmother Maternal Uncle Mother Alive Paternal Aunt Paternal Grandfather Alive Paternal Grandmother Sister Alive Social History Tobacco Use Types Packs/Day Years Used Date Smoking Tobacco: Never Smokeless Tobacco: Never Tobacco Cessation:Counseling Given: Yes Alcohol Use Standard Drinks/Week Comments Not Currently 4 (1 standard drink = 0.6 oz pur e alcohol) PHQ-2 Answer Date Recorded PHQ-2 TOTAL SCORE 0 04/16/2024 Social Connections Answer Date Recorded Do you often feel lonely or isolated from those around you? 0 04/16/2024 Alcohol Use Answer Date Recorded How often do you have a drink containing alcohol ? 0 11/21/2024 Average Number of Drinks Not on file 025 How often do you have five or more drinks on one occasion? 0 11/21/2024 Financial Resource Strain Answer Date R ecorded Difficulty of Paying Living Expenses 3 04/16/2024 Difficulty of Paying Living Expenses Not on file 04/16/2024 Food Insecurity Answer Date Recorded Do you worry your food will run out before you are able to buy more? 1 04/16/2024 Transportation Needs Answer Date Record ed Does lack of transportation keep you from medica l appointments? 1 04/16/2024 Does lack of transportation keep you from work, meetings or getting things that you need? 1 04/16/2024 Housing Stability Answer Date Recorded What is your housing situation today? 1 04/16/2024 Interpersonal Safety Answer Date Record ed Are you being hit, kicked, p ushed or yelled at (see row info)? Unable to assess, family/SO in room. 10/10/2024 Interpersonal Safety Abuse 12 - 18 Not on file 10/10/2024 Interpersonal Safety Ambulat ory Vulnerability Not on file 10/10/2024 Utilities Answer Date Recorded Do you have trouble paying f or utilities (for example, heat, electricity, water, phone)? 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 Not on file Not on file Not on file Obstetrics History Para Term AB IAB SAB Ectopic Multiple Livin g Live Births 1 0 0 0 0 0 0 0 0 0 Date Outcome GA Total Labor Labor/2nd/3rd Weight Sex Type Anes PTL Gricelda A1 A5 Name Clin Current Summary Episode Dates Number of Fetuses Estimated Date of Delivery 04/16/2024 - Present (12/07/2024) 1 12/06/2024 (set by Reva Castillo MD on 04/18/2024 based on Last Menstrual Period on 03/01/2024 (Exact Date)) Dating Summary Based On JR GA Diff Last Menstrual Period on 03/01/2024 (Exact Date) 12/06/2024 Working Ultrasound on 04/25/2024 12/08/2024 -2d GA:7w4d Overview and Plan :Winn sex:Muse Vitals Pregravid Weight Height TWG (As of 12/07/2024) Pregrav id BMI 70.3 kg (155 lb) 1.68 m (5' 6.14) 10.6 kg (23 lb 6.4 oz) 24.91 Date GA Fund Present FHR Mvmt BP Weight Edema Alb Glu Ket Dil/ Eff/Sta 5 21w6d Inpatient data not displayed here. See encounter summary. 5 25w5d Inpatient data not displayed here. See encounter summary. 5 31w6d Inpatient data not displayed here. See encounter summary. Notes Progress Notes - OB Encounte r - 11/21/2024 - GA:37w6d 11/21/2024 - 37wd - Reva Castillo MD S: Overall feeling well. Had one day with regular contractions for about 30 mins, however her bladder was full, and resolved when she emptied her bladder. BPP 8/8, JOSE DAVID 4.1, S/D ratio 2.7 GBS neg Contractions: +, not regular or increasing Vaginal bleeding: - Fluid leakage or discharge: - movement: + O: BP 119/77 (Cuff Site: Right Arm, Position: Sitting, Cuff Size: Adult Regular) Pulse 84 Temp 99 F (37.2 C) (Oral) Ht 1.68 m (5' 6.14) Wt 80.9 kg (178 lb 6.4 oz) LMP 03/01/2024 (Exact Date) SpO2 98% BMI 28.67 kg/m See OB flowsheet A/P: 1. Encounter for supervision of high risk in third trimester, antepartum (HC) (Primary) Growth US at 35w showed EFW 4%ile and AC 2%ile. Discussed delivery plan with MPP salesperson flowers, Dr. Christiansen, who recommends IOL at 38-39w, closer to 38w d/t lower AC. IOL scheduled for Thursday 11/23 (38+1) at 1800. Cervix closed today and will plan oral cytotec for cervical ripening. - VAGINAL/RECTAL OB STREP PCR; Future - VAGINAL/RECTAL OB STREP PCR 2. growth restriction antepartum (HC) 20 week US EFW 13th, HC 6th > Level 2 US at 21w with normal anatomy, EFW 8th, AC 10th > Growth US at 25w EFW 25th > Growth US at 29w EFW 10th, AC 9th > Growth US at 35w EFW 4th, AC 2nd - Weekly BPPs with [facility] and JOSE DAVID - Declined NIPT Reva Castillo MD .................... 11/21/2024 11:57 AM Progress Notes - OB Encounte r - 11/14/2024 - GA:36w6d 11/14/2024 - 36w6d - Reva Castillo MD S: BPP scheduled after the visit. Overall feeling well. Contractions: here and there Vaginal bleeding: - Fluid leakage or discharge: - movement: + Headache: - Blurry vision: - Swelling in hands, extremities: - O: BP 120/80 (Cuff Site: Left Arm, Position: Sitting, Cuff Size: Adult Regular) Pulse 85 Temp 98.1 F (36.7 C) (Oral) Ht 1.68 m (5' 6.14) Wt 81.7 kg (180 lb 3.2 oz) LMP 03/01/2024 (Exact Date) SpO2 99% BMI 28.96 kg/m See OB flowsheet A/P: 1. Encounter for supervision of high risk in third trimester, antepartum (HC) (Primary) Growth US at 35w showed EFW 4%ile and AC 2%ile. Discussed delivery plan with [facility] salesperson flowers, Dr. Christiansen, who recommends IOL at 38-39w, closer to 38w d/t lower AC. Reviewed recommendations with patient and today. They are agreeable to IOL; scheduled for Thursday 11/23 (38+1) at 1800. Cervix closed today and will plan oral cytotec for cervical ripening. - VAGINAL/RECTAL OB STREP PCR; Future - VAGINAL/RECTAL OB STREP PCR 2. growth restriction antepartum (HC) 20 week US EFW 13th, HC 6th > Level 2 US at 21w with normal anatomy, EFW 8th, AC 10th > Growth US at 25w EFW 25th > Growth US at 29w EFW 10th, AC 9th > Growth US at 35w EFW 4th, AC 2nd - Weekly BPPs with [facility] and JOSE DAVID - Declined NIPT Progress Notes - OB Encounte r - 10/31/2024 - GA:34w6d 10/31/2024 - 34w6d - Reva Castillo MD S: Having some difficulty with HR regarding leave. Wanting to go back a few days earlier, 01/23/2025 Overall feeling well, it's been a normal week. Some leg cramps. BPP with dopplers and growth scheduled after the visit. Wishes to have COVID-19 vaccine when available (Nov 12) O: BP 111/72 (Cuff Site: Right Arm, Position: Sitting, Cuff Size: Adult Regular) Pulse 89 Wt 79.7 kg (175 lb 9.6 oz) LMP 03/01/2024 (Exact Date) SpO2 99% BMI 29.22 kg/m See OB flowsheet A/P: 1. Encounter for supervision of high risk in third trimester, antepartum (HC) (Primary) Delivery planning based on US today. 2. growth restriction antepartum (HC) 20 week US EFW 13th, HC 6th > Level 2 US at 21w with normal anatomy, EFW 8th, AC 10th > Growth US at 25w EFW 25th > Growth US at 29w EFW 10th, AC 9th. - Weekly BPPs with [facility] and JOSE DAVID - Repeat growth at 34 and 38 weeks - Anticipate IOL at 38 0/7 to 39 0/7 weeks - Declined NIPT Follow-up in 2 weeks Reva Castillo MD .................... 10/31/2024 7:58 AM Progress Notes - OB Encounte r - 10/17/2024 - GA:32w6d 10/17/2024 - 32w6d - Reva Castillo MD S: 6/8 BPP on 10/10. Ended up having to go to [facility] for NST, which was reactive. No umbilical artery dopplar was completed. She has another BPP scheduled at the [facility] later today. The remainder of BPPs are scheduled at the [facility]. Normal movement, otherwise feeling well. Agreeable to RSV and flu vaccines today. Wants to review reasoning and potential methods of IOL at 38-39weeks. In addition, questions about pain relief options during labor. O: BP 115/74 (Cuff Site: Right Arm, Position: Sitting, Cuff Size: Adult Regular) Pulse 90 Wt 78.4 kg (172 lb 12.8 oz) LMP 03/01/2024 (Exact Date) SpO2 99% BMI 28.76 kg/m See OB flowsheet. A/P: 1. Encounter for supervision of high risk in third trimester, antepartum (HC) (Primary) - Declined NIPT - BPP later today at [facility]. RN will call to ensure [facility] is completed. If NST needed and cannot be done in [place], discussed patient should go to [facility] (as US is scheduled for 4:30 and today is Sunday) - Remainder of BPPs scheduled at [facility] - Reviewed risks and benefits of cervical ripening and IOL methods as well as pain control options today. 2. growth restriction antepartum (HC) 20 week US EFW 13th, HC 6th > Level 2 US at 21w with normal anatomy, EFW 8th, AC 10th > Growth US at 25w EFW 25th > Growth US at 29w EFW 10th, AC 9th. - Weekly BPPs with [facility] and JOSE DAVID - Repeat growth at 34 and 38 weeks - Anticipate IOL at 38 0/7 to 39 0/7 weeks - Declined NIPT 3. Need for RSV vaccination - ABRYSVO - RSV vaccine 120mcg/0.5mL bivalent [[id number]] -- for adults 50yo+ and for women 4. Need for influenza vaccination - FluLaval Single Dose Syringe FLU VACCINE =>6 MO PRESERV FREE TRIVALENT IIV3 IM [[id number]] Follow-up in 2 weeks Reva Castillo MD .................... 10/17/2024 10:08 AM Progress Notes - Hospital En counter - 10/10/2024 - GA:31w6d 10/10/2024 - 31w6d - Janae Gray RN D: At 1520 patient presents ambulatory from work to [facility] for evaluation of abnormal BPP result in clinic this morning. BPP 6/8, off for breathing. Accompanied by SO. Rates pain 0/10. Patient denies contractions, vaginal bleeding, and loss of fluid. Patient reports normal movements. Patient is a at 31w6d gestation. Patient's OB/PMH significant for the following: n/a A: EFM/toco applied (see flowsheet), abdomen gravid, nontender to palpation. Vital signs BP 124/74 (Cuff Size: Adult Regular) Pulse 68 Temp 97.9 F (36.6 C) Resp 16 Ht 1.651 m (5' 5) Wt 79.7 kg (175 lb 12.8 oz) LMP 03/01/2024 (Exact Date) SpO2 100% BMI 29.25 kg/m . Contractions noted on toco q 2-7 minutes, pt denies feeling. R: Dr Louis notified of above data, nursing assessment and FHR tracing including contraction frequency. Orders received. Plan of Care discussed with patient, patient verbalizes understanding and agreement. INTERVENTIONS: n/a NST: reactive Discharge orders received from Dr Louis. Patient has a follow up appointment in 1 week. Discharge paperwork given and reviewed, all questions answered. Discharged home undelivered with all belongings at 1610. Progress Notes - OB Encounte r - 10/03/2024 - GA:30w6d 10/03/2024 - 30w6d - Reva Castillo MD Repeat growth today, results are pending. Wondering about COVID-19, flu, and RSV. Agreeable to RSV vaccine 32-36 weeks. Would like to review what to expect at the hospital for labor and delivery. Has completed hospital registration. Contractions: - Vaginal bleeding: - Fluid leakage or discharge: - movement: + 1. Upcoming testing: IUGR on 20 week US, resolved with EFW 25% on growth US at 24 weeks. Repeat growth completed today and results are pending. 2. RTC in 2 week(s) 3. Reviewed signs and symptoms of pre-eclampsia and labor, reasons to go to triage Reva Castillo MD Progress Notes - OB Encounte r - 09/19/2024 - GA:28w6d 09/19/2024 - 28wd - Reva Castillo MD S: Increased low back pain over the past ~3 weeks. Mid-back and low back. Went to the chiropractor, and was told that her pelvis is shifted. Got some stretches to try. Follow-up growth US with MPP at 25w showed EFW 25th. Recommendation to recheck growth in 4 weeks, otherwise resume typical care. Agreeable to TDAP O: BP 115/74 (Cuff Site: Right Arm, Position: Sitting, Cuff Size: Adult Regular) Pulse 90 Wt 77.1 kg (170 lb) LMP 03/01/2024 (Exact Date) SpO2 100% BMI 28.05 kg/m See OB flowsheet A/P: 1. Encounter for supervision of normal first in third trimester (HC) (Primary) - 20 week survey showed EFW 13th, HC 6th > Level 2 with MPP at 21 w showed EFW 8th percentile and AC 10th c/w mild IUGR > Growth US with MPP at 25w showed EFW 25th, no monitoring or delivery alterations recommended other than f/u growth in 4 weeks - US OB FOLLOW UP ANY TRI SINGLE TA; Future 2. growth restriction antepartum (HC) - Resolved 3. Need for mqegzgfutg-mgddavy-tjtamxlgg (Tdap) vaccine - TDAP VACCINE IM [[id number]] Progress Notes - OB Encounte r - 08/18/2024 - GA:24w2d 08/18/2024 - 24w2d - Reva Casitllo MD S: GCT today [facility] visit on 08/01/24 for questionable FGR showed EFW 8th percentile and AC 10th, confirming mild IUGR. Recommendation for weekly umbilical artery dopplers and BPP and NSTs starting at 28 weeks. Patient is scheduled for next US with [facility] on 08/28/24. Wish to discuss circumcision pros and cons if male infant. Parents unsure which way they are leaning, but wish to make an informed decision. O: BP 113/75 (Cuff Site: Right Arm, Position: Sitting, Cuff Size: Adult Regular) Pulse 74 Wt 74.7 kg (164 lb 9.6 oz) LMP 03/01/2024 (Exact Date) SpO2 100% BMI 27.16 kg/m See OB flowsheet A/P: 1. Encounter for supervision of high risk in first trimester, antepartum (HC) (Primary) - GLUCOSE TOLERANCE, GESTATIONAL SCREEN 1H; Future - HEMOGLOBIN; Future - TREPONEMA PALLIDUM; Future - GLUCOSE TOLERANCE, GESTATIONAL SCREEN 1H - HEMOGLOBIN - TREPONEMA PALLIDUM 2. growth restriction antepartum (HC) [facility] visit on 08/01/24 for questionable FGR showed EFW 8th percentile and AC 10th, confirming mild IUGR. Otherwise anatomy WNL. - Weekly BPP and NST starting at 28 weeks - UAU with [facility] scheduled 08/28/24 - Repeat growth Q4 weeks - Patient will discuss with [facility] at the upcoming US if she will schedule weekly monitoring with [facility] or here. She works in [place]. - Reviewed the possibility of early induction/delivery pending growth and monitoring results Reva Castillo MD .................... 08/18/2024 1:07 PM Progress Notes - Hospital En counter - 08/01/2024 - GA:21w6d 08/01/2024 - 21w6d - Arvind Cornejo MBBS [facility] Ultrasound Visit Your patient had an ultrasound with [facility] on 08/01/2024. The report is ready and can be found in the Results review section of the [facility]. Recommendations regarding further care are listed below. The Impression from the report is below. Thank you for sending her to see us. Referred By: REVA CASTILLO Indications Code 21 weeks gestation of Z3A.21 Borderline SGA on outside u/s Declined serum screening Suspected growth restriction. IMPRESSION: Intrauterine at 21w 6d. presentation is variable. EFW 380 grams, percentile: 8. AC 153.9 mm, percentile: 10th%. Growth parameters and estimated weight suggest Growth Restriction. No major structural anomalies were identified. No other markers for aneuploidy were identified. Umbilical artery Dopplers are normal. Deepest Vertical Pocket of amniotic fluid: 5.47 cm. Placental location: Anterior. Placental edge dist. from phd intern os= 4.9 cm The transabdominal cervical length is 3.7 cm. RECOMMENDATIONS: -Return to primary provider for continued care. -Betamethasone per provider discretion. -Weekly BPP/NSTs starting at 28 weeks. -Weekly Umbilical artery Dopplers. -Weekly amniotic fluid determinations. -Next is scheduled in 2 weeks. -Repeat growth ultrasound in 4 weeks. -The patient was directed to schedule with [facility] as discussed at their visit today. -Patient directed to schedule at the front end specialist on the way out, or to call [facility] within 2 business days to schedule follow up. CONSULT: The patient was seen by the Perinatologist today. The previous ultrasound and the records were reviewed. The results of today's ultrasound were communicated to the patient. Results today are consistent with symmetric Growth Restriction. Possible etiologies for FGR include aneuploidy, genetic syndromes, infection, maternal medical conditions (ie. HTN), placental insufficiency, and constitutional patterns of growth differences. No structural abnormalities were seen on ultrasound today nor were other findings consistent with aneuploidy or infection (although this does not rule out these possible causes). The amniotic fluid and umbilical artery Doppler studies were normal. Given the growth indices today, close maternal/ surveillance is recommended. The guidelines in our practice for management of uncomplicated FGR include: -When FGR is mild, we recommend repeat growth ultrasound in 3-4 weeks, BPPs and Dopplers weekly (starting at 28 weeks), and delivery at 38 0/7 to 39 0/7 weeks with a goal of 39 weeks. Delivery planning should occur when the patient attains a gestational age of 34-36 weeks based on the growth ultrasound. -When FGR is severe (<3rd percentile or decreased EDF), we recommend repeat growth ultrasound in 3-4 weeks, weekly BPPs (starting at 28 weeks) and weekly Doppler studies. Delivery is recommended at 37 0/7 weeks. -If at any time the Dopplers or amniotic fluid become abnormal, a repeat consult to [facility] should be requested. If absent or reversed end diastolic flow in the umbilical artery were to occur, inpatient hospitalization for betamethasone and increased surveillance will be recommended. delivery may be indicated. There are alternatives available for detecting anomalies, aneuploidy and predicting developmental outcome for this . These include maternal serum screening, ultrasound, and genetic amniocentesis and their individual risks. Government regulations related to the Cures act require that this note be released to the patient immediately, sometimes before the referring provider has been contacted. A portion of the information was presented verbally to the patient. The remainder is submitted as background for the referring provider, to be discussed as needed. Medical Decision Making: Consult Moderate Level 14406 Moderate number/complexity of problems including an undiagnosed new problem with uncertain prognosis or an acute illness with systemic symptoms for mother or fetus, etc. Moderate amount and/or complexity of Data reviewed and analyzed including review of prior ultrasound, ordering another ultrasound, and review of prior external notes, etc. Moderate risk of morbidity or mortality related to prescription drug treatment, elective major surgery, or social determinants of health, etc. Services Provided: Procedures Code DETAIL ANATOMY 69820.0 UMBILICAL ARTERY DOPPLER 49400.0 87635.0 Progress Notes - OB Encounte r - 07/25/2024 - GA:20w6d 07/25/2024 - 20wd - Reva Castillo MD 20 week survey. EFW 13th percentile. Did not find out sex. Some movement. Continues to have intermittent vaginal itching. Using clotrimazole betamethasone cream maybe a few times weekly, which has been helpful. No change in discharge. Got maternity leave paperwork from both parents employers. Patient is planning to take 20 weeks of maternity leave, which is the maximum she can take and retain her job. is planning to take 6 weeks of paternity leave, and 12 additional weeks later on. Contractions: - Vaginal bleeding: - Fluid leakage or discharge: - movement: + 1. Upcoming testing: GCT, hemoglobin, syphilis at next appointment -Plan growth ultrasound at 28 weeks given borderline EFW. 2. RTC in 4 week(s) 3. Reviewed signs and symptoms of pre-eclampsia and labor, reasons to go to triage Reva Castillo MD Progress Notes - OB Encounte r - 06/27/2024 - GA:16w6d 06/27/2024 - 16w6d - Reva Castillo MD Images from the original note were not included. S: Rash. At the last visit, endorsed a ringworm type rash on her left hip. Tried treating with topical antifungal without improvement. Then spread to involve stomach, thighs, arms, back. She was prescribed triamcinolone 0.1% cream, which has resulted in significant improvement. Now over the past few days, has also noticed what seems like maybe a different rash that has an irritated feeling. Not itchy. In addition, has had some vaginal itching. No abnormal discharge. Abdominal cramping/pain: - Vaginal bleeding: - movement: unsure Vaginal discharge: higher volume normal discharge O: BP 125/73 (Cuff Site: Right Arm, Position: Sitting, Cuff Size: Adult Regular) Pulse 91 Wt 71.8 kg (158 lb 3.2 oz) LMP 03/01/2024 (Exact Date) SpO2 100% BMI 26.10 kg/m A/P: 1. Encounter for supervision of low-risk first in second trimester (HC) (Primary) survey US ordered for 20 weeks - US OB BASIC ANATOMY SCREEN SINGLE TA; Future 2. Nummular dermatitis Suspect nummular eczema. Offered dermatology e-consult, and patient is agreeable. Continue topical steroids for now, also recommend moisturizing with colloidal cream 3. Vaginal itching Itching, but no candidal-type discharge. She has not tolerated topical yeast vaginitis tx in the past. As oral is not preferred during , will defer testing until symptoms worsen. 1. RTC in 4 weeks Reva Castillo MD Progress Notes - OB Encounte r - 05/30/2024 - GA:12w6d 05/30/2024 - 12w6d - Reva Castillo MD FIRST OB VISIT HPI: Anamika Herrera is a 29 y.o. female at 12w6d with winn intrauterine here today for a initial OB exam. Estimated due date is Estimated Date of Delivery: 12/06/24 based on LMP. History of Present Illness The patient is a 29-year-old G1, P0 at 12 weeks and 6 days who presents for her first OB visit. She is accompanied by her . Her Pap smear is up to date. Her lab work was only significant for varicella nonimmune. She is O+ blood type. A dating ultrasound at 7 weeks showed a normally developing intrauterine and a small subchorionic hemorrhage. Dates were consistent with LMP. Overall good health is reported, with intermittent nausea experienced during the initial weeks of . This nausea has since improved and become more manageable. No episodes of vomiting have occurred. Fatigue and occasional constipation are noted.Increased congestion is attributed to sinus issues. B6 vitamins and regular snacking have been beneficial. Concern is expressed about a scaly spot that appeared on the left hip a few days ago. OB History Para Term AB Living 1 0 0 0 0 0 SAB IAB Ectopic Multiple Live Births 0 0 0 0 # Outcome Date GA Lbr Eduardo/2nd Weight Sex Type Anes PTL Lv 1 Current Past Medical History: . Date No Significant Past Medical History Past Surgical History: . Laterality Date ACL RECONSTRUCTION Right 06/2015 WISDOM TEETH EXTRACTION Family History Problem Relation Age of Onset Hypertension Mother Cancer Father hodgkins Seizures Sister Cancer Maternal Aunt Diabetes Maternal Aunt Cancer Maternal Uncle Diabetes Maternal Uncle Coronary artery disease Paternal Aunt Hypertension Maternal Grandmother Cancer Maternal Grandmother blood cancer Diabetes Maternal Grandfather Hypertension Maternal Grandfather Dementia Paternal Grandmother Coronary artery disease Paternal Grandfather Cancer-prostate Paternal Grandfather Social History Tobacco Use Smoking status: Never Smokeless tobacco: Never Substance Use Topics Alcohol use: Not Currently Alcohol/week: 4.0 standard drinks of alcohol Types: 2 Glasses of wine, 2 Cans of beer per week Current Outpatient Medications Medication Sig vit 28/iron fum/folic (multivitamin folic acid 1 mg) Take 1 Tablet by mouth once daily. No current facility-administered medications for this visit. Medications have been reviewed by me and are current to the best of my knowledge and ability. ALLERGIES Patient has no known allergies. MENTAL HEALTH HISTORY History of psychiatric diagnosis: adjustment d/o Current mental health provider: No Currently taking any psychiatric medications? No INFECTION HISTORY Current Drug Use: none Relevant infection history from OB Questionnaire: none REVIEW OF SYSTEMS Comprehensive ROS complete and negative other than noted in HPI and on OB Questionnaire. PHYSICAL EXAM BP 120/74 (Cuff Site: Right Arm, Position: Sitting, Cuff Size: Adult Regular) Pulse 86 Wt 72.2 kg (159 lb 3.2 oz) LMP 03/01/2024 (Exact Date) SpO2 100% BMI 26.27 kg/m General Appearance: Alert, appropriate appearance for age. No acute distress. HEENT Exam: Grossly normal. Neck/Thyroid Exam: Supple, no masses, nodes or enlargement. Lungs: Clear to auscultation bilaterally. Breast Exam: Not indicated. Cardiovascular Exam: Regular rate and rhythm. S1, S2, no murmur. Abd: Soft, non-tender, no masses or organomegaly. Skin: no rashes or lesions. Lymphatics: no nodes palpable. Psychiatric Exam: Alert and oriented x 3, appropriate affect. Pelvic Exam Vulva and vagina appear normal. Cervix closed, long. Uterus: 12 wk sz, nontender. Adnexa: not palpable. ASSESSMENT/PLAN 29 y.o. at 12w6d with winn intrauterine . ICD-10-CM 1. Encounter for supervision of low-risk first in first trimester (HC) Z34.01 Assessment & Plan 1. First OB visit: - Manageable nausea improved with B6 vitamins and frequent snacking. - Occasional constipation, worse during nausea. - Contact center for registration and complete plan. - Information on breast pumps provided, including insurance-covered options. - Genetic screening discussed, including cell-free DNA test available from 9 weeks. Couple will discuss. - Pelvic exam performed. - Reassured increased congestion and vaginal discharge are normal during . - movement typically begins around 16 weeks. - Next blood draw, including glucose test, between 24-28 weeks. - Reimmunize for chickenpox post-. 2. Suspected ringworm: Spot appeared to be ringworm or eczema. - Treat with OTC antifungal cream for 2 weeks. - If unresolved, switch to hydrocortisone. Follow-up - Follow up in 4 weeks. Satisfactory exam. Demonstrates appropriate and health-seeking behaviors toward her . Verbalizes good understanding of care schedule and the importance of coming to each visit as scheduled. Start/continue vitamins. Reviewed labs. She was encouraged to call the office with any questions or concerns. Body mass index is 26.27 kg/m . Diet and expected weight gain discussed with patient. Reva Castillo MD Progress Notes - Phone OB En counter - 04/25/2024 - GA:7w6d 04/25/2024 - 7w6d - Michelle Hernández RN Virtual Visit: As the provider for this telephone service, I attest that I introduced myself to the patient, provided my credentials, disclosed my location, and determined that, based on a review of the patient's chart and/or a discussion with members of the patient's treatment team, a telephone visit is an appropriate and effective means of providing this service. The patient and I mutually agree that this visit is appropriate for telephone as well. Patient location (originating site [facility] Provider location (distant site city/state): [place], [place] Video/Phone start time (include am/pm designation): 1445 PM Video/Phone end time (include am/pm designation): 1530 SUBJECTIVE: Anamika Herrera is a 28 y.o. female, , who presents for OB education and intake Had positive test at home. This was Planned, Desired. Patient was not on contraception. 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 MENSTRUAL HISTORY: Patient's last menstrual period was 03/01/2024 (exact date).: Cycle Regularity: regular, every 28-30 days Past Medical History: . Date No Significant Past Medical History OB History Para Term AB Living 1 0 0 0 0 0 SAB IAB Ectopic Multiple Live Births 0 0 0 0 # Outcome Date GA Lbr Eduardo/2nd Weight Sex Type Anes PTL Lv 1 Current 5P'S SUBSTANCE ABUSE SCREEN FOR ALCOHOL, DRUGS AND TOBACCO: Did any of your parents have a problem with using alcohol or drugs? Yes dad- alcohol Do any of your friends (peers) have problems with drug or alcohol use? No Does your partner have a problem with drug or alcohol use? No Before you knew you were , how often did you drink beer, wine, wine coolers or liquor or use any kind of drug? Sometimes- alcohol on the weekends In the past month, how often did you drink beer, wine, wine coolers or liquor or use any kind of drug? Not at all How much did you smoke, vape or use tobacco or nicotine in any form before you knew you were ? Don't Smoke, Vape or use Tobacco Genetic Screening Genetic Screening/Teratology Counseling- Includes patient, baby's father, or anyone in either family with: Patient's age 35 years or older as of estimated date of delivery: Yes Thalassemia (South Korean, Georgian, Mediterranean, or background): MCV less than 80: No Neural tube defect (Meningomyelocele, Spina bifida, or Anencephaly): No Congenital heart defect: No Down syndrome: No Bobby-Sachs (Ashkenazi Restoration, Cajun, Turkish Hernando): No Saul disease (Ashkenazi Restoration): No Familial dysautonomia (Ashkenazi Restoration): No Sickle cell disease or trait (): No Hemophilia or other blood disorders: No Muscular dystrophy: No Cystic fibrosis: No Arlen's chorea: No Intellectual disability and/or autism: Yes (Comment: maternal cousin, paternal aunt and cousin) If yes, was the person tested for Fragile X?: No Other inherited genetic or chromosomal disorder: No Maternal metabolic disorder (eg. Type 1 diabetes, PKU): (Comment: Unsure if grandpa was type 1 or 2) Patient or baby's father had child with defects not listed above: No Recurrent loss, or a stillbirth: Yes Medications (including supplements, vitamins, herbs, or OTC drugs)/illicit/recreational drugs/alcohol since last menstrual period: No CURRENT MEDICATIONS: Current Outpatient Medications Medication Sig clotrimazole 1% vaginal cream Insert 1 Applicatorful into the vagina at bedtime for 7 days. vit 28/iron fum/folic (multivitamin folic acid 1 mg) Take 1 Tablet by mouth once daily. No current facility-administered medications for this visit. Medications have been reviewed by me and are current to the best of my knowledge and ability. ALLERGIES: Patient has no known allergies. OBJECTIVE: LMP 03/01/2024 (Exact Date) POC HCG URINE (no units) Date Value 04/16/2024 POSITIVE (A) ASSESSMENT/PLAN: No diagnosis found. EDUCATION/PATIENT INSTRUCTIONS - Advised patient to start/continue vitamin. - Discussed risk of using alcohol, tobacco, other drugs in . - Discussed healthy lifestyle in . - Provided online resources such as [employer] and [employer]. Discussed ifet-ldl-gkqznfw medications, and follow up. - Encouraged patient to call clinic at [phone] with any vaginal bleeding, fluid leaking from vagina, severe abdominal pain, nausea with severe vomiting, fever higher than 100.4F, painful urination, headache not relieved by Tylenol, or other concerns - labs - Patient informed to schedule 1st trimester dating ultrasound between 7-10 weeks. - Initial OB appointment with FP/OB scheduled. PHQ-9, and COVID-19 vaccine discussion to be completed at this visit. Future Appointments Date Time Provider Department Center 04/25/2024 4:00 PM [facility] ULTRASOUND [facility] 05/22/2024 3:35 PM Reva Castillo MD [facility] Michelle Ratliff RN .................... 04/25/2024 3:09 PM Progress Notes - OB Encounte r - 04/16/2024 - GA:6w4d 04/16/2024 - 6w4d - Reva Castillo MD SUBJECTIVE: Anamika Herrera is a 28 y.o. female who presents to discuss Care . HPI Positive test at home. Patient's last menstrual period was 03/01/2024 (exact date). Planned and desired . Trying for about 5 months. Overall feeling well. Denies nausea or vomiting. No constipation. Many questions. . Ba. This is his first child. ROS Review of Systems is included in the HPI. Patient Active Problem List Diagnosis Date Noted Pap smear for cervical cancer screening 03/12/202302/2023 NIL/HPV negative. Plan: Pap/HPV due 02/2028. Adjustment disorder with depressed mood 12/22/2009 Current Outpatient Medications Medication Sig drospirenone-ethinyl estradioL ([place], [place],) 3-0.02 mg tablet Take 1 Tablet by mouth once daily. No current facility-administered medications for this visit. Medications have been reviewed by me and are current to the best of my knowledge and ability. OBJECTIVE: BP 102/70 (Cuff Site: Right Arm, Position: Sitting, Cuff Size: Adult Regular) Pulse 86 Wt 70.3 kg (155 lb) LMP 03/01/2024 (Exact Date) SpO2 99% BMI 25.58 kg/m PHYSICAL EXAM General: Well-appearing adult female. Alert, oriented and appropriate. No acute distress. HEENT: Mucous membranes moist. Cardiovascular: Appears well-perfused. Pulmonary: Breathing comfortably on room air. Skin: No rashes appreciated over exposed skin. Neuro: Grossly normal, no focal deficits. ASSESSMENT AND PLAN: 1. Missed period (Primary) LMP 03/01/24 with JR 12/06/24, putting her at 6 weeks 4 days today. Overall feeling well. Extensive counseling regarding early recommendations, expectations, care, and labor and delivery planning. Blood pressure initially elevated, but normal upon recheck. New OB labs and dating ultrasound ordered today. Will refer to RN for OB intake visit. Counseled return for visit and exam at 10 to 12 weeks. - POCT Urine; Future - GC CHLAMYDIA TRACH PROBE; Future - POCT Urine - ANTI HIV 1/2; Future - VARICELLA-ZOSTER V AB, IGG; Future - CBC W PLT NO DIFF; Future - URINE CULTURE; Future - TYPE AND SCREEN; Future - RUBELLA IMMUNE STATUS; Future - TREPONEMA PALLIDUM; Future - HBSAG (HBS); Future - ANTI HCV; Future - LC VARICELLA-ZOSTER V AB, IGG; Future - HIGH COURT JUSTICE PROBE - GC CHLAMYDIA DNA PCR [[id number]]; Future - vit 28/iron fum/folic (multivitamin folic acid 1 mg); Take 1 Tablet by mouth once daily. - TRICHOMONAS, KOLTON, AND BACTERIAL VAGINOSIS BY ADONIS; Future - US OB 1ST TRI SINGLE TA AND TV; Future - HIGH COURT JUSTICE PROBE - GC CHLAMYDIA DNA PCR [[id number]] - TRICHOMONAS, KOLTON, AND BACTERIAL VAGINOSIS BY ADONIS Reva Castillo MD .................... 04/16/2024 4:25 PM Total time preparing to see this patient, luyx-su-emkp time, and coordinating care time on the same calendar date: 46 minutes. Last Filed Vital Signs Vital Sign Reading Time Taken Comments Blood Pressure 119/77 11/21/2024 8:03 AM CDT Pulse 84 11/21/2024 8:03 AM CDT Temperature 37.2 C (99 F) 11/21/2024 8:03 AM CDT Respiratory Rate 16 10/10/2024 3:30 PM CDT Oxygen Saturation 98% 11/21/2024 8:03 AM CDT Inhaled Oxygen Concentration - - Weight 80.9 kg (178 lb 6.4 oz) 11/21/2024 8:03 A M CDT Height 168 cm (5' 6.14) 11/21/2024 8:03 AM CDT Body Mass Index 28.67 11/21/2024 8:03 AM CDT Plan of Treatment Health Maintenance Due Date Last Done Comments Depression screening for age 12+ 04/18/2025 04/18/2024, 04/16/2024, 02/28/2023, Additional history exists BMI (ht and wt on same day) for age 18+ 11/21/2025 11/21/2024, 11/14/2024, 02/28/2023, Additional history exists Pap test for age 21-65 02/29/2028 , 02/28/2023, 02/11/2020, Additional history exists Tetanus booster 09/19/2034 09/19/2024, 02/05, 06/26/2011, Additional history exists Hepatitis B series for 19+ Completed 03/16, 03/16/1994, 1993, Additional history exists HPV series for age 9-45 Completed 02/14/19 13, 02/15/2012, 09/27/2011, Additional history exists HIV for age 15-65 Completed 04/25/2024 Hepatitis C screening for age 18-79 Completed 04/25/2024 Influenza Vaccine Completed 10/17/2024, , 11/05/2022, Additional history exists RSV vaccine for adults or Completed 10/17/2024 Pneumococcal series for age 6-49 Aged Out No longer eligible based on patient's age to complete this topic Procedures Procedure Name Priority Date/Time Associated Diagnosis Comments SCAN-LABORATORY REPORT 11/26/2024 12:00 AM CDT LAB TRACKING EVENT Routine 11/25/2024 11 :24 AM CDT PATH TISSUE EXAM PLACENTA Routine 11/25/2024 11:24 AM CDT SCAN-LABORATORY REPORT 11/25/2024 12:00 AM CDT SCAN-LABORATORY REPORT 11/25/2024 12:00 AM CDT SCAN-OPERATIVE/PROCE DURE REPORT 11/25/2024 12:00 AM CDT SCAN-LABORATORY REPORT 11/23/2024 12:00 AM CDT SCAN-LABORATORY REPORT 11/23/2024 12:00 AM CDT US OB BIOPHYSICAL PROFILE SINGLE WO NST Routine 11/21/2024 7:55 AM CDT growth restriction antepartum (HC) US OB BIOPHYSICAL PROFILE SINGLE WO NST Routine 11/14/2024 4:23 PM CDT growth restriction antepartum (HC) VAGINAL/RECTAL OB STREP PCR Routine 11/14/2024 3:48 PM CDT growth restriction antepartum (HC) US OB BIOPHYSICAL PROFILE SINGLE WO NST Routine 11/07/2024 9:26 AM CDT growth restriction antepartum (HC) US OB BIOPHYSICAL PROFILE AND FOLLOW UP SINGLE Routine 10/31/2024 8:50 AM CDT growth restriction antepartum (HC) US OB BIOPHYSICAL PROFILE SINGLE WO NST Routine 10/24/2024 4:25 PM CDT growth restriction antepartum (HC) US OB BIOPHYSICAL PROFILE SINGLE WO NST Routine 10/17/2024 5:22 PM CDT growth restriction antepartum (HC) NONSTRESS TEST Routine 10/10/2024 4:12 PM CDT US OB BIOPHYSICAL PROFILE SINGLE WO NST STAT 10/10/2024 8:46 AM CDT growth restriction antepartum (HC) US OB FOLLOW UP ANY TRI SINGLE TA Routine 10/03/2024 8:04 AM CDT Encounter for supervision of normal first in third trimester (HC) US OB BIOPHYSICAL PROFILE SINGLE WO NST Routine 09/19/2024 10:42 AM CDT growth restriction antepartum (HC) ANTI HIV 1/2 Routine 04/25/2024 4:23 PM CDT Missed period ANTI HCV Routine 04/25/2024 4:23 PM CDT Missed period HPV HIGH RISK Routine 02/28/2023 3:00 PM REEL SLITTER Screening for cervical cancer from Last 3 Months or Most Recently Relevant to Health Maintenance Results * SCAN-LABORATORY REPORT (11/26/2024 12:00 AM CDT) Only the most recent of5 resultswithin the time period is included. us Scanner OTHER Final Result * LAB TRACKING EVENT (11/25/2024 11:24 AM CDT) Other (Other) Client Collect / Unknown 11/25/2024 11:24 AM CDT 11/26/2024 6:19 AM CDT us Doctor Unknown LAB BILL ONLY Final Result [facility] [address] [place] [address], * PATH TISSUE EXAM PLACENTA (11/25/2024 11:24 AM CDT) Case Report Pathology Report Case: [id number] Authorizing Provider: Unknown, Doctor Collected: 11/25/2024 1124 Ordering Location: [facility] Received: 11/26/2024 0953 Pathologist: Kati Torrez MD Specimen: Placenta 11/28/2024 12:32 PM CDT [facility] LABORATORY-C ENTRAL LABORATORY Final Diagnosis A) PLACENTA, VAGINAL DELIVERY: 1. Third trimester winn placenta with the following characteristics: a. Weight: 304 grams (<10th percentile for gestational age) b. Membranes/ surface: Negative for chorioamnionitis c. Umbilical cord: Three vessel cord Negative for funisitis d. Disc/Villi: Chorionic villi consistent with gestational age Patchy chronic villitis, low grade Placental disc without infarcts e. Decidua/basal plate: No diagnostic abnormalities identified 11/28/2024 12:32 PM CDT [facility] LABORATORY at 1232 CDT Comment The pattern of chronic inflammation of the decidua/basal plate is most consistent with so-called villitis of unknown etiology (CASA). In this case, the severity is considered to be low-grade. As implied by the name of this entity, the etiology of CASA is not entirely clear, but some data suggest that this may represent an abnormal maternal- alloimmune reaction. Low-grade chronic CASA is usually clinically silent. 11/28/2024 12:32 PM CDT [facility] Clinical Information Vaginal delivery at 38+3 weeks gestational age. IUGR. 11/28/2024 12:32 PM CDT [facility] Gross Description A) Received fresh labeled with the patient's name and placenta, is a 304 gram, 24.5 x 16.0 x 1.8 cm winn placenta. The surface is blue-cain with normal vasculature. The 31.0 cm long, 1.3 cm diameter trivascular umbilical cord is eccentrically inserted 3.8 cm from the nearest edge of the placental plate. The umbilical cord averages 2.5 turns per 10 cm with no true knots or thrombi identified. The extraplacental membranes are min-pink, smooth and glistening with marginal insertion. The maternal surface is intact with red-brown, uniform cotyledons and less than 5% calcifications. Sectioning reveals dark red, spongy parenchyma with no lesions or masses identified. C[employer] Mixer sections are submitted: 1. membranes and insertion 2. Umbilical cord 3. Central section with umbilical cord insertion, full-thickness 4-5. Central sections, full-thickness Time and date in formalin: 1413 on 11/26/27 JKG 11/26/2024 11/28/2024 12:32 PM CDT [facility] Microscopic Description The final diagnosis is based on microscopic examination of appropriate sections of all specimens. 11/28/2024 12:32 PM CDT [facility] Additional Information Interpreted at [facility] - [address], [place] [address] 11/28/2024 12:32 PM CDT [facility] Tissue SPECIMEN FROM PLACENTA / Unknown 11/25/2024 11:24 AM CDT 11/26/2024 9:53 AM CDT us Doctor Unknown PATHOLOGY/CYTOLOGY Final Result [facility] [address] [place] [address], * SCAN-OPERATIVE/PROCEDURE REPORT (11/25/2024 12:00 AM CDT) us Scanner OTHER Final Result * US OB BIOPHYSICAL PROFILE SINGLE WO NST (11/21/2024 7:55 AM CDT) Only the most recent of7 resultswithin the time period is included. Anatomical Region Laterality Modality Ultrasound Impressions 11/23/2024 7:42 PM CDT Biophysical profile score 8/8. Dede Kee M.D. Diagnostic/Breast Radiologist [facility], [employer]. [email or web address] Narrative 11/23/2024 7:42 PM CDT For Patients: As a result of the Cures Act, medical imaging exams and procedure reports are released immediately into your electronic medical record. You may view this report before your referring provider. If you have questions, please contact your health care provider. OBSTETRICAL ULTRASOUND - BIOPHYSICAL PROFILE, SINGLE WITHOUT NST 11/21/2024 CLINICAL INDICATION: growth restriction. TECHNIQUE: Transabdominal obstetrical ultrasound. FINDINGS: JR: 12/06/2024. GEST AGE: 37 W 6 D FHR: 133 bpm. AF INDEX: 4.1 cm. UMB ARTERY S/D RATIO: 2.7 N. (Greater than 34W, Less than 3.5) BIOPHYSICAL PROFILE: breathing activity: 2/2 Gross body movements: 2/2 tone: 2/2 Amniotic fluid: 2/2 Total: 09/12 us Reva Castillo MD US Final Resul t * VAGINAL/RECTAL OB STREP PCR (11/14/2024 3:48 PM CDT) Vaginal/Rectal OB Strep B PCR Negative 11/17/2024 12:04 PM CDT [facility] Other (Vaginal/Rectal) Non-Blood / Unknown 11/14/2024 3:48 PM CDT 11/14/2024 3:58 PM CDT Narrative [facility] - 11/17/2024 12:04 PM CDT us Reva Castillo MD MICROBIOLOGY Final Resul t [facility] [address] [place] [address], [place] * US OB BIOPHYSICAL PROFILE AND FOLLOW UP SINGLE (10/31/2024 8:50 AM CDT) Anatomical Region Laterality Modality Ultrasound 10/31/2024 4:19 PM CDT Impressions 10/31/2024 4:19 PM CDT Normal biophysical profile score of 8/8. Sonographic gestational age 33 weeks 1 day and sonographic due date 12/18/2024. Sonographic age is 12 days behind the clinical age. Estimated weight 4th percentile. Abdominal circumference less than 2nd percentile. Head circumference less than 2nd percentile. Dictated by Adiel Frey MD @ 10/31/2024 4:19:52 PM (Electronically Signed) Narrative 10/31/2024 4:19 PM CDT For Patients: As a result of the Cures Act, medical imaging exams and procedure reports are released immediately into your electronic medical record. You may view this report before your referring provider. If you have questions, please contact your health care provider. INDICATION: growth restriction TECHNIQUE: Real-time cain-scale imaging of the fetus was performed transabdominal as well as color Doppler and spectral Doppler analysis of the umbilical artery. COMPARISON: 10/24/2024 FINDINGS: Sonographic imaging demonstrates a single living intrauterine gestation. Fetus demonstrates a regular cardiac rate of 139 beats per minute. Fetus has a vertex position. The placenta lies anterior without evidence of placenta previa. Amniotic fluid volume appears normal and there is a single deepest pocket of 3.9 cm. The estimated weight is 1987 gm which lies at the 4th%. On the prior OB ultrasound dated 10/03/2024 the estimated weight was at the 10th percentile. There is adequate diastolic blood flow within the umbilical artery. The S/D ratio measures 2.3. The fetus was active and demonstrated normal breathing movements. There was normal flexion and extension of the trunk and extremities. Procedure Note Adiel Frey MD - 10/31/2024 For Patients: As a result of the Cures Act, medical imagingexams and procedure reports are released immediately into your electronicmedical record. You may view this report before your referring provider.If you have questions, please contact your health care provider. INDICATION: growth restriction TECHNIQUE: Real-time cain-scale imaging of the fetus was performed transabdominal aswell as color Doppler and spectral Doppler analysis of the umbilicalartery. COMPARISON: 10/24/2024 FINDINGS: Sonographic imaging demonstrates a single living intrauterine gestation.Fetus demonstrates a regular cardiac rate of 139 beats per minute. Fetushas a vertex position. The placenta lies anterior without evidence ofplacenta previa. Amniotic fluid volume appears normal and there is asingle deepest pocket of 3.9 cm. The estimated weight is 1987 gmwhich lies at the 4th%. On the prior OB ultrasound dated 10/03/2024 theestimated weight was at the 10th percentile. There is adequatediastolic blood flow within the umbilical artery. The S/D ratio measures2.3. The fetus was active and demonstrated normal breathing movements. Therewas normal flexion and extension of the trunk and extremities. IMPRESSION: Normal biophysical profile score of 8/8. Sonographic gestational age 33 weeks 1 day and sonographic due date12/18/2024. Sonographic age is 12 days behind the clinical age. Estimated weight 4th percentile. Abdominal circumference less [id number] percentile. Head circumference less than 2nd percentile. Dictated by Adiel Frey MD @ 10/31/2024 4:19:52 PM (Electronically Signed) us Reva Castillo MD Final Resul t * Nonstress Test (10/10/2024 4:12 PM CDT) Narrative Jesica Farias MD, PhD - 10/10/2024 4:12 PM CDT Jesica Farias MD, PhD 10/10/2024 9:27 PM HEART RATE TRACING INTERPRETATION Patient: Anamika Herrera : 1995 Date of test: 10/10/2024 Strip Time Segment: 1530 to 1550 LORI/Acct: [id number] Admitting Physician: Jesica Farias MD, PhD Gestational Age: 31w6d JR of 12/06/2024, by Last Menstrual Period Reason for Non-Stress test: BPP 6/8 in clinic Is Patient Having Contractions?: Yes Contractions / Frequency: 2-7 Contractions Duration (range in sec): 30-100 Contractions Strength By Palpation: (not recorded) Palpated Resting Tone: Soft Patient Perception of Contractions: unaware Movement: Present Baseline FHR: 135 Baseline Variability: Moderate Accelerations: Present Age Appropriate Accelerations: 15 X 15;2 in 20 Decelerations / Type: None Acoustic Stimulator: (not recorded) Nonstress Test Interpretation: Reactive Result: Expected result Provider notification: Discussed with Dr Louis at 1600. Plan discharge home. Janae Diez RN .................... 10/10/2024 4:13 PM Agree with reactive NST. KENDRA Yates RN .................... 10/10/2024 4:20 PM us Jesica Ricarda Farias MD, PhD OB PROCEDURE ORD Edited Result - Final * US OB FOLLOW UP ANY TRI SINGLE TA (10/03/2024 8:04 AM CDT) Anatomical Region Laterality Modality , 2or 3 TRIMESTER Ultrasound 10/03/2024 1:30 PM CDT Impressions 10/03/2024 1:30 PM CDT Sonographic gestational age 30 weeks 2 days and sonographic due date of 12/10/2024. Sonographic age is 4 days behind the clinical age. Estimated weight 10th percentile. Abdominal circumference 9th percentile. Dictated by Adiel Frey MD @ 10/03/2024 1:30:35 PM (Electronically Signed) Narrative 10/03/2024 1:30 PM CDT For Patients: As a result of the Cures Act, medical imaging exams and procedure reports are released immediately into your electronic medical record. You may view this report before your referring provider. If you have questions, please contact your health care provider. INDICATION: Third trimester scan, evaluate growth. COMPARISON: 09/19/2024 TECHNIQUE: Real-time cain-scale imaging of the fetus was performed transabdominal FINDINGS: Sonographic imaging demonstrates a single living intrauterine gestation. Fetus demonstrates a regular cardiac rate of 130 beats per minute. Fetus has a vertex position. The placenta lies anterior. Amniotic fluid volume appears normal and there is a single deepest vertical pocket: 4.7 cm. The estimated weight is 1443 gm which lies at the 10th%. On the prior OB ultrasound exam dated 08/28/2024 the estimated weight was at the 19th%. BPD 56th percentile. HC is 6th percentile. AC 9th percentile. FL 14th percentile. The HC/AC ratio measures 1.10 range (0.990-1.21). Procedure Note Adiel Frey MD - 10/03/2024 For Patients: As a result of the Cures Act, medical imagingexams and procedure reports are released immediately into your electronicmedical record. You may view this report before your referring provider.If you have questions, please contact your health care provider. INDICATION: Third trimester scan, evaluate growth. COMPARISON: 09/19/2024 TECHNIQUE: Real-time cain-scale imaging of the fetus was performed transabdominal FINDINGS: Sonographic imaging demonstrates a single living intrauterine gestation.Fetus demonstrates a regular cardiac rate of 130 beats per minute. Fetushas a vertex position. The placenta lies anterior. Amniotic fluid volumeappears normal and there is a single deepest vertical pocket: 4.7 cm. Theestimated weight is 1443 gm which lies at the 10th%. On the prior OBultrasound exam dated 08/28/2024 the estimated weight was at [id number]%. BPD 56th percentile. HC is 6th percentile. AC 9th percentile. FL14th percentile. The HC/AC ratio measures 1.10 range (0.990- 1.21). IMPRESSION: Sonographic gestational age 30 weeks 2 days and sonographic due date of12/10/2024. Sonographic age is 4 days behind the clinical age. Estimated weight 10th percentile. Abdominal circumference 9thpercentile. Dictated by Adiel Frey MD @ 10/03/2024 1:30:35 PM (Electronically Signed) us Reva Castillo MD Final Resul t * ANTI HCV (04/25/2024 4:23 PM CDT) HEPATITIS C ANTIBODY NON-REACTI VE NON-REACT SAVANNAH [facility] [place] Comment: HCV antibody was non-reactive. There is no laboratory evidence of HCV infection. In most cases, no further action is required. However, if recent HCV exposure is suspected, a test for HCV RNA (test code 56761) is suggested. For additional information please refer to http://[employer]/faq/VET87r4 (This link is being provided for informational/ educational purposes only.) Blood BLOOD SPECIMEN / Unknown 04/25/2024 4:23 PM CDT 04/25/2024 4:25 PM CDT Reva Castillo MD SEND OUTS Final Resul t [employer] [facility] [address] [place] [address], [facility] [address] [place] [address] * ANTI HIV 1/2 (04/25/2024 4:23 PM CDT) HIV AG/AB, 4TH GEN NON-REACT SAVANNAH NON-REACT SAVANNAH [facility] [place] Comment: HIV-1 antigen and HIV-1/HIV-2 antibodies were not detected. There is no laboratory evidence of HIV infection. PLEASE NOTE: This information has been disclosed to you from records whose confidentiality may be protected by state law. If your state requires such protection, then the state law prohibits you from making any further disclosure of the information without the specific written consent of the person to whom it pertains, or as otherwise permitted by law. A general authorization for the release of medical or other information is NOT sufficient for this purpose. For additional information please refer to http://Inuvo.[employer]iba/faq/PGU834 (This link is being provided for informational/ educational purposes only.) The performance of this assay has not been clinically validated in patients less than 2 years old. Blood BLOOD SPECIMEN / Unknown 04/25/2024 4:23 PM CDT 04/25/2024 4:25 PM CDT Reva Castillo MD SEND OUTS Final Resul t Performing Organization Address City/[facility]/ZIP Co de Phone Number [employer] [facility] [address] [place] [address], [facility] [address] [place] [address] * HPV HIGH RISK (02/28/2023 3:00 PM REEL SLITTER) TYPE 16 Negative Negative 03/03/2023 4:00 PM REEL SLITTER [facility] TYPE 18 Negative Negative 03/03/2023 4:00 PM REEL SLITTER [facility] OTHER HIGH RISK TYPES Negative Negative 03/03/2023 4:00 PM REEL SLITTER [facility] TRAL LABORATORY Other (Cervical) Non-Blood / Unknown 02/28/2023 3:00 PM REEL SLITTER 03/01/2023 11:21 AM REEL SLITTER Narrative [facility] - 03/03/2023 4:00 PM REEL SLITTER HPV types 16, 18, 31, 33, 35, 39, 45, 51, 52, 56, 58, 59, 66 and 68 DNA were undetectable or below the pre-set threshold. Methodology: Denisha Serena 4800 HPV Test Reva Castillo MD MICROBIOLOGY Final Resul t [facility] [address] [place] [address], from Last 3 Months or Most Recently Relevant to Health Maintenance Insurance [facility] [employer] Advance Directives Documents on File Type Date Recorded Patient Casing Mixer Expl anation Healthcare Directive 11/13/2023 7:46 AM si gned 11/14/23 Care Teams Vault Clerk Relationship Specialty Start Date End Date Reva Castillo MD [address] [place] [address] PCP - General Family Practice 06/02/22
[2024-12-07 17:00] VITALS: BP 146/77; PULSE 91; RESP 18; TEMP 36.6; O2SAT 98; BMI 27.3
--- NOTE | 2024-12-07 17:15 | CRLHL7_ITS ---
For Patients: As a result of the Century Cures Act, medical imaging exams and procedure reports are released immediately into your electronic medical record. You may view this report before your referring provider. If you have questions, please contact your health care provider. INDICATION: Calf pain TECHNIQUE: Ultrasound venous duplex lower left extremity. Compression venous exam was performed using cain-scale, color Doppler, and spectral Doppler analysis. COMPARISON: None. FINDINGS: Sonographic imaging demonstrates the left common femoral, deep femoral, superficial femoral, popliteal, posterior tibial and greater saphenous and the contralateral right common femoral veins to be fully compressible with normal color Doppler blood flow. IMPRESSION: Normal left lower extremity venous ultrasound, no sign of deep venous thrombosis. Dictated by Duane Wolfe MD @ 12/07/2024 7:06:13 PM (Electronically Signed)
[2024-12-07 17:37] LABS: Hematocrit* 36.4 % (33.0-51.0); Hemoglobin* 12.1 gm/dL (12.0-16.0); Immature Granulocytes Abs Auto 0.06 K/uL (0.00-0.30); Immature Granulocytes Pct Auto 0.6 %; Lymphocytes Absolute Auto 3.60 K/uL (0.90-2.90); Mean Corpuscular HGB Conc 33 gm/dL (32-36); Mean Corpuscular Hemoglobin 30 pg (26-34); Mean Corpuscular Volume 91 fL (80-100); RDW Coefficient of Variation % 12.0 % (11.5-15.5); Red Blood Count* 4.02 m/uL (4.00-5.20); White Blood Count* 10.37 K/uL (4.50-11.00)
[2024-12-07 17:38] LABS: Slide Review Reflex No
[2024-12-07 17:53] LABS: Albumin* 4.3 g/dL (3.3-5.0); Chloride* 101 mmol/L (96-114); Potassium* 4.0 mmol/L (3.6-5.1); Sodium* 135 mmol/L (135-149)
[2024-12-07 17:56] LABS: Alanine Aminotransferase* 38 U/L (4-35); Alkaline Phosphatase* 121 U/L (40-150); Anion Gap 9 mEq/L (7-15); Aspartate Amino Transferase* 39 U/L (12-35); Bilirubin Total* 0.3 mg/dL (0.1-1.5); Blood Urea Nitrogen* 15 mg/dL (5-24); Calcium* 9.2 mg/dL (8.4-10.6); Carbon Dioxide* 25 mmol/L (20-32); Creatinine* 0.9 mg/dL (0.5-1.5); Est. Creatinine Clearance* 81.50; Estimated Glomerular Filt Rate 88 ml/min; Glucose* 108 mg/dL (60-115); Total Protein* 8.1 g/dL (6.0-8.3)
[2024-12-07 18:00] VITALS: BP 126/80; PULSE 79; RESP 16; O2SAT 96
--- NOTE | 2024-12-07 18:07 | ED.GENADULT ---
HPI - General Adult General Date Seen: 12/07/24 Chief complaint: Extremity Pain/Injury, Lower Stated complaint: worried about blood clot Time Seen by Provider: 12/07/24 17:04 Source: patient Mode of arrival: ambulatory Limitations: no limitations History of Present Illness HPI narrative: Patient is a 29-year-old female who is currently 10 days presenting to the emergency department for left leg pain. She states she woke up today and started having left leg pain. She is concerned she could have a blood clot. Denies any chest pain and shortness of breath. Has not had leg pain like this before. Pain is mostly in her left calf. Of note when she was evaluated in triage she was hypertensive at 146/77. She does admit she is anxious currently. She has not had issues with preeclampsia during her . Is not on any blood pressure medication. No other concerns or symptoms at this time. Related Data Home Medications ?Medication ?Instructions ?Recorded ?Confirmed clotrimazole-betamethasone 1 1 applic topical BID PRN itching 11/23/24 11/23/24 %-0.05 % topical cream vits,calcium 91-iron 28 1 pkg PO DAILY 11/23/24 11/23/24 mg-folic 975 mcg-dha 200 mg oral pack ( + DHA) Previous Rx's ?Medication ?Instructions ?Recorded acetaminophen 500 mg tablet 1,000 mg (2 x 500 mg) PO Q6H #30 11/27/24 tabs docusate sodium 100 mg capsule 100 mg PO BID PRN Constipation #30 11/27/24 caps ferrous sulfate 325 mg (65 mg 325 mg PO Q48H #30 tabs 11/27/24 iron) tablet ibuprofen 600 mg tablet 600 mg PO Q6H #3 tabs 11/27/24 polyethylene glycol 3350 17 gram 17 g PO DAILY #30 ea 11/27/24 oral powder packet sertraline 50 mg tablet 25 mg (1/2 x 50 mg) PO DAILY #30 11/27/24 tabs Allergies Allergy/AdvReac Type Severity Reaction Status Date / Time No Known Drug Allergies Allergy Verified 11/23/24 20:18 Review of Systems Narrative: Pertinent systems reviewed and were negative unless stated in HPI PFSH PFSH Medical History hemorrhage ?O72.1 - Other immediate hemorrhage (ICD-10) (normal spontaneous vaginal delivery) ?O80 - Encounter for full-term uncomplicated delivery (ICD-10) IUGR (intrauterine growth restriction) Social History What is your current living situation?: I presently have a place to live Problems where you live: no known problems In the past 12 months, utilities in danger of being shut off: no In past 12 months, lack of transportation kept you from medical appts, meetings, work, or getting things needed for daily living: no In the past 12 mos, have been you worried that your food would run out before you had money to buy more?: never true In the past 12 mos, the food you bought just didn't last and you didn't have money to buy more?: never true Smoking Status: Never smoker Do you use any of these nicotine containing products: None How often do you have a drink containing alcohol: 2-4 times a month How often do you have six or more drinks on one occasion: Never AUDIT-C Alcohol total score: 2 Non-prescribed substance use: denies use How often does anyone, including family, friends and others, physically hurt you: never How often does anyone, including family, friends and others, insult or talk down to you: never How often does anyone, including family, friends and others, threaten you with harm: never How often does anyone, including family, friends and others, scream or curse at you: never Exam Narrative: Exam Narrative: Const: Well-nourished, Well-developed, in mild distress Eyes: PERRL, no conjunctival injection, and symmetrical lids HENT: Atraumatic external nose and ears. Moist mucous membranes. Neck: Symmetric, trachea midline, No thyromegaly. CVS: RRR, No murmurs or gallops. Peripheral pulses 2+ and equal in all extremities RESP: Unlabored respiratory effort. Clear to auscultation bilaterally. GI: Nontender/Nondistended, No rebound or guarding. MSK:Extremities w/o deformity, Normal Active ROM, mild left calf tenderness Skin: Warm, Dry. No rashes or lesions. Neuro: Normal Muscle tone, No focal neurological deficits. Psych: Awake, Alert, & Oriented x3. Appropriate mood and affect. Const: Vital Signs, click to edit/add: Vital Signs - 24 hr 12/07/24 17:00 12/07/24 18:00 12/07/24 18:30 Temperature 97.8 F Pulse Rate [Right Pulse Oximeter] 91 79 81 Respiratory Rate 18 16 16 Blood Pressure [Ri ght Upper Arm] 146/77 H 126/80 118/72 Pulse Oximetry 98 96 96 Oxygen Delivery Me thod Room Air Room Air Course Vital Signs Vital signs: Initial Vital Signs Temperature 97.8 F 12/07/24 17:00 Temperature Source Temporal Artery Scan 12/07/24 17:00 Pulse Rate 91 12/07/24 17:00 Respiratory Rate 18 12/07/24 17:00 Blood Pressure 146/77 H 12/07/24 17:00 Blood Pressure Mean 100 12/07/24 17:00 Blood Pressure Position Sitting 12/07/24 17:00 Pulse Oximetry 98 12/07/24 17:00 Oxygen Delivery Method Room Air 12/07/24 17:00 Vital Signs Temperature 97.8 F 12/07/24 17:00 Pulse Rate 91 12/07/24 17:00 Respiratory Rate 18 12/07/24 17:00 Blood Pressure 146/77 H 12/07/24 17:00 Pulse Oximetry 98 12/07/24 17:00 Oxygen Delivery Method Room Air 12/07/24 17:00 Temperature 97.8 F 12/07/24 17:00 Pulse Rate 81 12/07/24 18:30 Respiratory Rate 16 12/07/24 18:30 Blood Pressure 118/72 12/07/24 18:30 Pulse Oximetry 96 12/07/24 18:30 Oxygen Delivery Method Room Air 12/07/24 18:30 Medical Decision Making [facility] Narrative Medical decision making narrative: Patient is a 29-year-old female presenting for left calf pain. Pain has been going on since this morning. She is concerned about blood clot. No other concerns noted at this time. Will do an ultrasound the left lower extremity to look for signs of a DVT. Of note she was also hypertensive here in the emergency department. She is within the time frame for preeclampsia. Due to this I will order lab work including CBC and CMP. Her elevated blood pressure very well could be all from anxiety. She does appear very anxious. Patient's lab work is unremarkable. She is very mildly elevated AST and ALT but not enough to be concerned about severe features of preeclampsia. She has had multiple blood pressures since her initial wound there back to normal. I do believe her initial elevated blood pressure was secondary to anxiety. Ultrasound does not show any signs of a DVT. At this time I do believe she is safe for discharge. She is agreeable to this plan. Lab Data Labs: Lab Results 12/07/24 Range/Units 17:27 WBC 10.37 (4.50-11.00) K/uL RBC 4.02 (4.00-5.20) m/uL Hgb 12.1 (12.0-16.0) gm/dL Hct 36.4 (33.0-51.0) % MCV 91 (80-100) fL MCH 30 (26-34) pg MCHC 33 (32-36) gm/dL RDW Coeff of Stewart 12.0 (11.5-15.5) % Plt Count 442 H (140-440) K/uL Neut % (Auto) 57.1 (42.0-72.0) % Lymph % (Auto) 34.7 (20-44) % [place] % (Auto) 5.5 (0.0-11.0) % Eos % (Auto) 1.5 (0.0-7.0) % Baso % (Auto) 0.6 (0.0-3.0) % Neut # (Auto) 5.92 (1.7-7.0) K/uL Lymph # (Auto) 3.60 H (0.90-2.90) K/uL [place] # (Auto) 0.60 (0.00-0.90) K/UL Eos # (Auto) 0.16 (0.00-0.50) K/uL Baso # (Auto) 0.06 (0.00-0.30) K/uL Abs Immat Gran (auto) 0.06 (0.00-0.30) K/uL Imm/Tot Granulo (auto) 0.6 % Sodium 135 (135-149) mmol/L Potassium 4.0 (3.6-5.1) mmol/L Chloride 101 (96-114) mmol/L Carbon Dioxide 25 (20-32) mmol/L Anion Gap 9 (7-15) mEq/L BUN 15 (5-24) mg/dL Creatinine 0.9 (0.5-1.5) mg/dL Estimated Creat Clear 81.50 Estimated GFR 88 ml/min Glucose 108 (60-115) mg/dL Calcium 9.2 (8.4-10.6) mg/dL Total Bilirubin 0.3 (0.1-1.5) mg/dL AST 39 H (12-35) U/L ALT 38 H (4-35) U/L Alkaline Phosphatase 121 (40-150) U/L Total Protein 8.1 (6.0-8.3) g/dL Albumin 4.3 (3.3-5.0) g/dL Imaging Data Venous US: Attestation: I have reviewed the pertinent imaging results. Radiologist's impression: Normal left lower extremity venous ultrasound, no sign of deep venous thrombosis. Dictated by Duane Wolfe MD @ 12/07/2024 7:06:13 PM Discharge Plan Discharge Clinical Impression: Pain of left calf Patient Disposition: Home, Self-Care Condition: Stable Instructions: Leg Cramps (ED) Additional Instructions: I believe your calf pain is likely muscular in nature. Your blood pressures have been normal other than 1 singular episode when he 1st arrived. you are not showing signs of preeclampsia, still I recommend you call your OB provider in the morning to inform them that you had 1 episode of high blood pressure in the emergency department. I do think the high blood pressure is likely related to anxiety. Prescriptions: No Action clotrimazole-betamethasone 1-0.05 % cream 1 applic topical BID PRN (Reason: itching) + DHA 28 mg iron- 975 mcg-200 mg combo pack 1 pkg PO DAILY acetaminophen 500 mg Tablet 1,000 mg PO Q6H Qty: 30 0RF docusate sodium 100 mg Capsule 100 mg PO BID PRN (Reason: Constipation) Qty: 30 0RF ferrous sulfate 325 mg (65 mg iron) Tablet 325 mg PO Q48H Qty: 30 0RF polyethylene glycol 3350 17 gram Powder In Packet 17 g PO DAILY Qty: 30 0RF ibuprofen 600 mg Tablet 600 mg PO Q6H Qty: 3 0RF sertraline 50 mg Tablet 25 mg PO DAILY Qty: 30 1RF Rx Instructions: Take 0.5 tablet daily for 6 days, then increase to 1 tablet daily Follow Up/Referrals: Shy Castillo MD [Primary Care Provider, Obstetrics] Stand Alone Forms: [employer] Info Instructions
[2024-12-07 18:30] VITALS: BP 118/72; PULSE 81; RESP 16; O2SAT 96
[2024-12-07 19:44] VITALS: BP 116/74; PULSE 88; RESP 16
== END 2024-12-07 19:30 | disposition home or self-care (01) ==
PROVIDERS: Emergency Provider Student in an Organized Health Care Education/Training Program; PCP Family Medicine
DX: M79.662 Pain in left lower leg (principal)
CPT/HCPCS: 36415; 80053; 85025; 93971; 99283; 99284